=== PATIENT | female | born 1980 | race Caucasian/White ===

== ENCOUNTER 2020-04-09 18:19 | Emergency (ER) | payer SELFPAY ==
[2020-04-09 18:20] VITALS: BP 143/84; PULSE 75; RESP 16; TEMP 36.2; O2SAT 100
--- NOTE | 2020-04-09 18:21 | W.ED.GENAD ---
Discharge Plan Disposition Patient Disposition: HOME Condition: Good Discharge Details Chief Complaint: Orthopedic Clinical Impression: Acromioclavicular joint separation Primary Care Provider: None,None ED Provider: Michelle Chanel Home Meds and New Rx's Prescriptions: Continued Control Pill 1 tab PO DAILY RF: 0 Discharge Instructions Instructions: Acromioclavicular Separation (ED) Additional Instructions: Encourage rest, ice, elevation. Tylenol and/or ibuprofen as needed for discomfort. Please continue with sling until evaluated by orthopedics. Please call orthopedics tomorrow to schedule follow-up appointment. You may perform light duty activities with your right hand but please avoid excessive strain on the left. If you develop fever/chills, increased pain or other new/worsening symptom please seek care urgently once again. Stand Alone Forms: Work Release Referrals: Migue Aly MD [ [facility] STAFF PHYSICIAN] - Discharge Data Discharge Date/Time-TO BE ENTERED AT DEPARTURE: 04/09/20 20:05 Medical Decision Making Patient is a pleasant 39-year-old tavaz-syil-zvdwxurh female. Patient was Kiswahili, x ray tech was utilized. She is here today with chief complaint of left shoulder injury. Reports that 3 weeks ago a Rey pinned her between its own body weight on the wall. She reports that her arm was forced behind her in the arm against the wall was the left. Since that time, she has had pain primarily along the anterior aspect of the shoulder but this does radiate slightly into the arm as well as into the scapula. She is also indicates the pain along the trapezius. States she has some tingling in her fingers. States that while she has been able to continue to perform her job, she has had difficulty particularly holding heavy things in the left arm secondary to discomfort over the anterior aspect of the shoulder. She denies other injury at the time of the incident. On exam, patient appears to be no acute distress. She is full range of motion of her left upper extremity. Pain primarily over the AC joint and bicep tendon. She still has pain with internal rotation against resistance. Exam is otherwise within normal limits. No neurologic dysfunction is noted on the patient does indicate the ring and middle finger as area of intermittent tingling. This was not evident on exam, sensation was intact. Patient was given Tylenol, ibuprofen and Lidoderm patch to help with discomfort. X-ray reviewed by radiologist FINDINGS: Bones/joints: The distal clavicle has an irregular appearance and is slightly superiorly sloped. This suggests an acromioclavicular injury with a possible subacute fracture within the very distal clavicle. The remaining bones are normal appearance. Soft tissues: Mild soft tissue swelling is seen along the superior margin of the acromioclavicular joint. IMPRESSION: Findings suggestive of an acromioclavicular injury, with a possible fracture within the distal left clavicle. This can be further evaluated with an MRI or CT study. Findings with the patient. I reviewed the images and felt that most consistent with an AC joint separation. This is also most consistent with the patient's history and exam. Will place patient in a sling and have her follow-up with orthopedics. Encourage rest, ice, elevation. Tylenol and/or ibuprofen as needed for discomfort. We also discussed topical options that may be of benefit to help with her pain. Return precautions were discussed. Work note was given. All of her questions and concerns were addressed and she is in agreement this plan. HPI General Mode of arrival: ambulatory. Date/Time Provider Initiated Documentation: 04/09/20 18:21. Limitations to Documentation: language barrier (Bottom Liquor Attendant used). Information obtained by: patient and RN notes reviewed. History of Present Illness 39 year old F presents to the emergency department with the chief complaint of Left shoulder pain, described as severe, with intensity rated at 8. Quality is described as aching, and is localized to the left. Patient extremity. Patient started experiencing this week(s) (3) and it has been constant. Immobilization improves symptom(s), Movement worsens symptoms . Patient notes no other symptoms.. Patient did receive the following treatments prior to arrival, none Related Data Home Medications Medication Instructions Recorded Confirmed Control Pill 1 tab PO DAILY 04/09/20 Allergies Allergy/AdvReac Type Severity Reaction Status Date / Time No Known Allergies Allergy Unverified 04/09/20 18:24 Review of Systems Constitutional Constitutional: Reports as per HPI, Denies chills, Denies fever(s), Denies headache(s) and Denies weakness ENT Ears, Nose, Mouth, and Throat: Denies headache(s) Cardiovascular Cardiovascular: Reports as per HPI Respiratory Respiratory: Reports as per HPI and Denies cough Musculoskeletal Musculoskeletal: Reports as per HPI and Denies tingling Integumentary/Breasts Skin/Breast: Reports as per HPI, Denies rash and Denies wounds Neurologic Neurologic: Reports as per HPI, Denies headache(s), Denies tingling, Denies paresthesias and Denies weakness [facility] Social History Smoking/Tobacco Use Status: Never Alcohol Intake: never Substance use type: does not use Do you feel safe at home: Yes Do you feel safe in your relationship?: Yes Exam Const General: cooperative, healthy appearing, comfortable, no acute distress, well developed and well groomed Nutritional Appearance: average body habitus and well nourished Orientation: alert and awake Resp Effort & Inspection: normal respiratory effort, able to speak in complete sentences and no respiratory distress Cardio Rate: regular rate Rhythm: regular rhythm Skin General skin exam: no rashes or lesions noted Lesions: no lesions Rashes: no rashes Trauma: no lacerations or abrasions Neuro General: patient alert and patient awake Cognition: normal cognition Speech: speech normal Gait: normal gait Motor: muscle tone normal throughout Sensory Exam: no sensory deficits noted Extrem Left upper extremity: normal to inspection, full ROM, normal capillary refill, no joint enlargement, shoulder/upper arm Details: inspection abnormal, tenderness Location: of the A-C joint and over the biceps tendon, axillary nerve sensory function normal, normal ROM and other (pain with IR against resistance); no swelling, no abrasions, no lacerations, no ecchymosis, no crepitus and no deformity, elbow/forearm Details: normal to inspection, normal ROM and distal pulses intact; no tenderness, no swelling, no ecchymosis, no crepitus and no deformity, wrist Details: normal to inspection, normal ROM, normal vascular exam and radial pulse present; no tenderness and no swelling and hand Details: normal to inspection, normal capillary refill, neuromotor exam normal, neurosensory exam normal, tendon exam normal and normal ROM of fingers Psych Appearance: grossly normal and well kempt Mental Status: mental status grossly normal Speech and Movement: speech and movement normal
[2020-04-09] MEDS: Acetaminophen 500 MG TAB 1000 MG PO (18:56)
[2020-04-09] MEDS: Ibuprofen 600 MG TAB PO (18:56)
--- NOTE | 2020-04-09 19:15 | DI.RAD_ITS ---
EXAM: XR SHOULDER LT COMPLETE 2+V INDICATION: injury 3 weeks ago. COMPARISON: No exams were available for comparison TECHNIQUE: 2D digital imaging was performed. FINDINGS: There is a minimally displaced fracture at the tip of end of the distal clavicle. No other fractures are seen the AC joint is not widened the glenohumeral joint is intact. The visualized portions of t he ribs are intact. No pneumothorax is seen. IMPRESSION: Nondisplaced fracture at the distal end of the clavicle. DATA REPOSITORY: RADIATION DOSE DELIVERED:
--- NOTE | 2020-04-09 19:23 | DI.VRAD_ITS ---
PROCEDURE INFORMATION: Exam: XR Left Shoulder Exam date and time: 04/09/2020 7:10 PM Age: 39 years old Clinical indication: Pain; Shoulder; Left; Additional info: A cow fell into the patient 3-4 weeks ago, pain since, not improving TECHNIQUE: Imaging protocol: XR Left shoulder. Views: 2 or more views. COMPARISON: No relevant prior studies available. FINDINGS: Bones/joints: The distal clavicle has an irregular appearance and is slightly superiorly sloped. This suggests an acromioclavicular injury with a possible subacute fracture within the very distal clavicle. The remaining bones are normal appearance. Soft tissues: Mild soft tissue swelling is seen along the superior margin of the acromioclavicular joint. IMPRESSION: Findings suggestive of an acromioclavicular injury, with a possible fracture within the distal left clavicle. This can be further evaluated with an MRI or CT study. Dictated and Authenticated by: Silvina Oliveira MD. Ordering:STEPHAN Martinez MD
[2020-04-09 19:55] VITALS: BP 135/78; PULSE 67; RESP 16; O2SAT 100
--- NOTE | 2020-04-09 19:56 | NUR.NOTE ---
sling applied to L upper extremity. forging engineer Pedro research laboratory technician until 1900 and MARY Gutierrez until discharge, instructions provided and questions answered
[2020-04-09 20:10] VITALS: BP 135/78; PULSE 67; RESP 16; O2SAT 100
== END 2020-04-09 20:05 | disposition home or self-care (01) ==
PROVIDERS: Emergency Provider Physician Assistant
DX: S43.102A Unspecified dislocation of left acromioclavicular joint, initial encounter (principal); W55.29XA Other contact with cow, initial encounter; Y99.0 Civilian activity done for income or pay
CPT/HCPCS: 99284; 73030; 99283; L3650

== ENCOUNTER 2020-04-23 10:54 | Outpatient (CLI) | payer SELFPAY ==
--- NOTE | 2020-04-23 10:15 | DI.RAD_ITS ---
EXAM: XR CLAVICLE LT CLINICAL HISTORY: fu left shoulder TECHNIQUE: 2D digital imaging was performed. COMPARISON: CR,XR XR SHOULDER LT COMPLETE 2+V from 04/09/2020 FINDINGS: There has been no change in appearance or alignment of the left acromioclavicular joint. No new frac ture or dislocation is appreciated. Soft tissues are unremarkable. IMPRESSION: DATA REPOSITORY: RADIATION DOSE DELIVERED:
== END 2020-04-23 11:14 ==
PROVIDERS: Referring Provider Student in an Organized Health Care Education/Training Program; Visit Provider Student in an Organized Health Care Education/Training Program
DX: S42.002A Fracture of unspecified part of left clavicle, initial encounter for closed fracture (principal)
CPT/HCPCS: 73000

== ENCOUNTER 2021-02-23 19:15 | Outpatient (REF) | payer SELFPAY ==
[2021-02-26 15:58] LABS: Helicobacter pylori Ag, Feces Negative (Negative)
== END 2021-02-23 19:16 | disposition home or self-care (01) ==
LOC: NCHCN 19:15
PROVIDERS: Visit Provider Nurse Practitioner Family
DX: R10.13 Epigastric pain (principal)
CPT/HCPCS: 87338

== ENCOUNTER 2021-10-06 17:32 | Outpatient (REF) | payer SELFPAY ==
[2021-10-08 11:29] LABS: COVID-19 RT-PCR UVMMC Result Negative (Negative)
== END 2021-10-06 17:33 | disposition home or self-care (01) ==
LOC: LBN 17:32
PROVIDERS: Visit Provider Physician Assistant
DX: Z20.822 Contact with and (suspected) exposure to COVID-19 (principal)
CPT/HCPCS: U0003; 81003

== ENCOUNTER 2021-10-15 21:46 | Outpatient (REF) | payer SELFPAY ==
[2021-10-15 22:16] LABS: HCT 39.5 % (36.0-46.0); HGB 13.1 g/dL (11.2-15.7); MCH 30.3 pg (27.0-33.0); MCHC 33.2 % (32.0-36.0); MCV 91.4 fL (80-95); MPV 9.6 fL (8.0-11.0); Nucleated RBC 0 %; Platelet Count 355 10^3/uL (130-400); RBC 4.32 10^6/uL (3.93-5.22); RDW 13.2 % (11.7-14.6); RDW-SD 44.7 fL; WBC 11.16 10^3/uL (4.4-10.8)
[2021-10-15 22:26] LABS: ALT 44 U/L (14-59); AST 28 U/L (15-37); Alkaline Phosphatase 88 U/L (46-116); Anion Gap 9.1 mmol/L (3-11); BUN 13 mg/dL (7-18); Bilirubin, Total 0.2 mg/dL (0.2-1.0); CO2 24.9 mmol/L (21.0-32.0); CREATININE 0.7 mg/dL (0.55-1.02); Chloride 105 mmol/L (98-107); Glucose 144 mg/dL (74-106); Lipase 137 U/L (73-393); Sodium 139 mmol/L (136-145); Total Protein 7.7 g/dL (6.4-8.2)
[2021-10-15 22:31] LABS: Absolute Eosinophil Count 0.11 10^3/uL (0.0-0.7); Absolute Lymphocyte Count 5.25 10^3/uL (1.2-3.4); Absolute Monocyte Count 0.22 10^3/uL (0.1-0.8); Absolute Neutrophil Count 5.58 10^3/uL (1.2-6.7); Diff Comment Manual Differential; RBC Morphology Normal
== END 2021-10-15 21:47 | disposition home or self-care (01) ==
LOC: LBN 21:46
PROVIDERS: Visit Provider Nurse Practitioner Family
DX: R10.9 Unspecified abdominal pain (principal)
CPT/HCPCS: 80053; 83690; 85025

== ENCOUNTER 2022-01-22 01:09 | Outpatient (CLI) | payer SELFPAY ==
[2022-01-22 15:03] LABS: Source Nasal/Nares
[2022-01-22 17:50] LABS: COVID-19 PCR Negative (Negative)
== END 2022-01-22 01:10 | disposition home or self-care (01) ==
PROVIDERS: PCP Nurse Practitioner Family; Visit Provider Surgery
DX: Z20.822 Contact with and (suspected) exposure to COVID-19 (principal); Z01.818 Encounter for other preprocedural examination
CPT/HCPCS: 87635

== ENCOUNTER 2022-01-25 06:13 | Day surgery (SDC) | payer SELFPAY ==
[2022-01-25 06:23] VITALS: BP 123/72; PULSE 63; RESP 16; TEMP 36.7; O2SAT 97
--- NOTE | 2022-01-25 06:40 | HPE_ITS ---
Assessment and Plan Assessment and plan (1) Abdominal pain: Status: Acute Assessment and plan: Ya is a pleasant 41-year-old female with ongoing epigastric and left flank pain for more than 8 years.? She has never had an upper endoscopy or colonoscopy .? I recommend starting with that.? I reviewed the procedure with her in detail as well as the prep.? I have translated prep instructions in [place] African and will send those to her.? 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 Risks, benefits and complications have been reviewed. Complications include but are not limited to bleeding, pain, perforation, missed small lesion/polyp, sore throat, aspiration and adverse reaction to the medications. Questions were entertained and answered to their satisfaction and they wished to proceed. No guarantees were given or implied. Proceed with colonoscopy and upper endoscopy under sedation ? ? History of Present Illness Narrative: Mrs John Naranjo is a pleasant 41-year-old female who speaks Central African.? I was able to do the translation myself as I am a [place] speaker.? Ya tells me that she has had epigastric abdominal pain and periumbilical pain for more than 8 years.? The periumbilical pain started prior to the epigastric pain.? She was seen at a doctor's office and [facility] and she was told that she had an umbilical hernia and that is what the pain was coming from.? She underwent a hernia repair but the pain never resolved.? She also has a history of gastritis and takes omeprazole.? She has recently had increase in epigastric pain.? She has had no melena or hematochezia.? She has not had any changes in bowel habits.? She denies any nausea or vomiting. She hashad no changes in her health since she was last seen in the office. She tells me that she is nervous. Patient was reassured. Review of Systems All systems reviewed & are unremarkable except as noted in HPI and below PFSH All Active Problems Abdominal pain (Acute) Epigastric pain (Acute) Medical History Cervical spine pain (~03/2020) Cervical spine sprain Chest pain Closed left clavicular fracture (~03/2020) Surgical History History of esophagogastroduodenoscopy (EGD) History of ventral hernia repair Previous section x2 Social History Smoking/Tobacco Use Status: Never Smoking risk assessment performed?: Yes Alcohol Intake: never Substance use type: does not use Household members: spouse and children Housing: house Number of Children: 3 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 Current gender identity: female Do you feel safe at home: Yes Do you feel safe in your relationship?: Yes Additional Social history: unable to assess privatley Meds Allergies and Home Medications Allergies Allergy/AdvReac Type Severity Reaction Status Date / Time No Known Allergies Allergy Verified 01/22/22 15:12 Home Medications Medication Instructions Recorded Confirmed Type bisacodyl 5 mg tablet,delayed 5 mg PO ONCE #4 tabs 01/21/22 01/22/22 Rx release (Dulcolax (bisacodyl)) polyethylene glycol 3350 17 17 g PO ONCE #238 grams 01/21/22 01/22/22 Rx gram/dose oral powder Exam Const General: cooperative, comfortable and no acute distress HENMT Head: normocephalic and atraumatic Resp Effort & Inspection: normal respiratory effort Auscultation: clear to auscultation bilaterally Cardio Rate: regular rate Rhythm: regular rhythm Results Last Vital Signs Temp 98.1 F 01/25/22 06:23 Pulse 63 01/25/22 06:23 Resp 16 01/25/22 06:23 BP 123/72 01/25/22 06:23 Pulse Ox 97 01/25/22 06:23
--- NOTE | 2022-01-25 06:45 | ENDO_ITS ---
Date of service: 01/25/22 Time of Service: : Endoscopy Report DATE OF PROCEDURE: 01/25/22 PRE-OP DIAGNOSIS: Abdominal pain POST-OP DIAGNOSIS: other (gastritis, polyps) PROCEDURE: 1. EGD with biopsies 2. Colonoscopy with polypectomy SURGEON: Faby Willis ANESTHESIA TYPE: General:No Airway ESTIMATED BLOOD LOSS: 3 PATHOLOGY: other (gastric bx, GE junction bx, gastric polyp, ascending polyp and transverse polyp) COMPLICATIONS: None DISPOSITION: same day INDICATIONS: Ya is a pleasant 41-year-old female with ongoing epigastric and left flank pain for more than 8 years.? She has never had an upper endoscopy or col onoscopy.? I recommend starting with that.? I reviewed the procedure with her in detail as well as the prep.? I have translated prep instructions in Malay and will send those to her.? 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 PREP: Miralax/Dulcolax PROCEDURE START TIME: : PROCEDURE END TIME: 08:01 COLONOSCOPY RETRACTION TIME: 15 minutes FINDINGS: Upper- Acute and chronic gastritis, gastric polyps Lower- 2 small polyps PROCEDURE DESCRIPTION: After informed consent was obtained the patient was take to the procedure r oom and placed in a supine position. Monitors were applied and a time out was done. The patients name, date of , procedure type, allergies to medications and metal in their body was reviewed. A bite block was placed and the patient was sedated. Once sedated and comfortable the gastroscope was advanced through the oropharynx which was grossly normal into the esophagus. The proximal and mid- esophagus were normal. In the distal esophagus there was no inflammation noted. The scope was advanced into the stomach and through the pylorus into the 3rd portion of the duodenum. The duodenum was noted to be normal. The scope was retracted back into the stomach. There was acute and chronic inflammation noted in the antrum and body. There were benign fundic polyps noted. Biopsies were done to rule out H. pylori. There were no ulcers. The scope was retro-flexed. The cardia and fundus were noted to be normal. There was no hiatal hernia noted. The scope was retracted back into the esophagus and biopsies were done of the GE junction to rule out Jane's. The Z line was regular. The GE junction was at 35 cm. While the patient was still sedated they were placed in a left decubitous position. A rectal exam was done. External exam was normal. Internal exam revealed a normal sphincter tone and no palpable masses. The scope was then introduced and retro-flexed. No internal hemorrhoids, masses or polyps were identified on retroflexion. The scope was then advanced to the cecum without difficulty. The ileocecal valve and appendiceal orifice were identified. The prep was adequate. The scope was then slowly retracted over 15 minutes back into the rectum. Polyps were removed with cold forceps in the ascending and transverse colon. There was no diverticulosis noted. The scope was removed and the patient was woken up and taken back to Same day surgery in stable condition. The patient tolerated the procedure well and there were no immediate complications.
--- NOTE | 2022-01-25 06:46 | PDOC.DSDIS_ITS ---
Discharge Plan Disposition Patient Disposition: HOME Condition: Good Discharge Details Reason For Visit: abdominal pain Attending Provider: Faby Willis Primary Care Provider: Veronica Pro Home Meds and New Rx's Prescriptions: New omeprazole 40 mg capsule,delayed release(DR/EC) 40 mg PO DAILY Qty: 30 3RF Discontinued bisacodyl [Dulcolax (bisacodyl)] 5 mg tablet,delayed release (DR/EC) 5 mg PO ONCE Qty: 4 0RF Rx Instructions: Take according to provider's instructions for colonoscopy prep. polyethylene glycol 3350 17 gram/dose powder 17 g PO ONCE Qty: 238 0RF Rx Instructions: To be taken as directed by prescriber's office for colonoscopy prep. Discharge Instructions Instructions: Diet for Stomach Ulcers and Gastritis (GEN) Additional Instructions: Findings: inflamacion en el estomago Follow up: 2 o 3 semanas Nueva medicacion: Omeprazole 40 mg eder vez al valarie Please call if you develop: fevers >101.5 Nausea or Vomiting Abdominal pain that is not transient Rectal bleeding that is more then a tbsp A hard abdomen and inability to pass gas DAY SURGERY UNIT POST ENDOSCOPY INSTRUCTIONS Instructions for everyone who is given Anesthesia: For your safety, please do the following for the next 24 Hours: a. Do not drive or operate dangerous equipment b. Do not drink alcohol beverages or use any recreational drugs for the first 24 hours or while taking pain medications. The medications in your body may have a reaction that can be dangerous. c. Do not make any important decisions or sign any important papers 1. Generally there are no restrictions on your activity after a day or so has gone by, but you may feel a bit fatigued for a few days. 2. After you arrive home you may have a light meal and return to a normal diet as you can tolerate it without feeling sick to your stomach. 3. After surgery, you may feel pain or discomfort. This should be only transient, but if it persists please contact your doctor. 4. If there are any questions regarding the findings of your procedure, please feel free to contact your doctor. 6. If you are unable to contact your doctor with a problem, contact the hospital at [phone]. 7. Continue all your regular medications unless directed otherwise. I understand the above instructions and have no questions. Signature of Patient or Responsible Adult Escort Date/Time Name of Responsible Adult Escort Signature of Nurse Date/Time Referrals: Faby Willis MD [ [facility] STAFF PHYSICIAN] - 02/09/22 11:30 am Activity:: Activity as Tolerated Diet:: As Tolerated Discharge Orders Discharge Orders: Discharge Order (Routine); Ordered 01/25/22 Ordered By: Faby Willis DS: Diagnosis Discharge Diagnosis (1) Abdominal pain: Status: Acute
--- NOTE | 2022-01-25 06:59 | ANES.PREOP_ITS ---
General Info Date of Service Date Performed: 01/25/22 Height: 5 ft 5 in Weight: 80.91 kg Body Mass Index (BMI): 29.7 Surgical Procedure: Operation Date: 01/25/22 07:35 Proposed Procedure Side Surgeon p Colonoscopy/Gastroscopy Faby Willis MD Meds Allergies and Home Medications Allergies Allergy/AdvReac Type Severity Reaction Status Date / Time No Known Allergies Allergy Verified 01/22/22 15:12 Home Medication Medication Instructions Recorded bisacodyl 5 mg tablet,delayed 5 mg PO ONCE #4 tabs 01/21/22 release (Dulcolax (bisacodyl)) polyethylene glycol 3350 17 17 g PO ONCE #238 grams 01/21/22 gram/dose oral powder Current Visit Medications: Current Medications Generic Name Dose Route Start Last Admin Trade Name Freq PRN Reason Stop Dose Admin Hyoscyamine Sulfate 0.125 mg 01/25/22 06:47 Hyoscyamine 0.125 Mg Sl/Oral/Chew SL DIRECTED PRN Ringer's Solution 1,000 mls @ 80 mls/hr 01/25/22 06:00 IV 02/21/22 23:59 INFUSION [facility] IV Miscellaneous Supplies 1 each 01/25/22 06:00 Iv Access IV 02/21/22 23:59 DIRECTED [facility] Ondansetron HCl 4 mg 01/25/22 06:47 Ondansetron 4 Mg/2 Ml Vial IVP Q4H PRN PRN Nausea / Vomiting Sodium Chloride 0 ml 01/25/22 06:00 Normal Saline Flush 10 Ml Syr IV 02/21/22 23:59 PRN PRN Sodium Chloride 0 ml 01/25/22 06:00 Normal Saline 10 Ml Vial IJ 02/21/22 23:59 DIRECTED PRN Sterile Water 0 ml 01/25/22 06:00 Water,Injection,Sterile 10 Ml Vial IJ 02/21/22 23:59 DIRECTED PRN PFSH Active Problems Active Problems: Problem Status Onset Code Abdominal pain R10.9 Epigastric pain R10.13 Medical History Medical History Cervical spine pain (~03/2020) Cervical spine sprain Chest pain Closed left clavicular fracture (~03/2020) Surgical History Surgical History History of esophagogastroduodenoscopy (EGD) History of ventral hernia repair Previous section x2 Tobacco Smoking/Tobacco Use Status: Never Alcohol Alcohol Intake: never Substance Use Substance use type: does not use Vital Signs and Lab Results Vital Signs Most Recent Vital Signs in EMR: Most Recent Vital Signs Temp Pulse Resp BP Pulse Ox 36.7 C 63 16 123/72 97 01/25/22 06:23 01/25/22 06:23 01/25/22 06:23 01/25/22 06:23 01/25/22 06:23 Lab Results Blood Type / Crossmatch: No Data to Display Complete Blood Count: No Data to Display Complete Metabolic Panel: No Data to Display Liver Function Panel: No Data to Display Coagulation Panel: No Data to Display Cardiac Panel: No Data to Display Arterial Blood Gas: No Data to Display Venous Blood Gas: No Data to Display Pancreas Panel: No Data to Display Thyroid Panel: No Data to Display Infectious Disease: Coronavirus (COVID-19)(PCR) Negative (Negative) 01/22/22 14:58 Coronavirus 2019 Source Nasal/Nares 01/22/22 14:58 Blood Cultures: No Data to Display Toxicology Panel: No Data to Display Panel: No Data to Display Anesthesia Assessment and Plan Anesthesia History Personal History: No History of Anesthesia Complications Family History: No Family History of Anesthesia Complications Exercise Tolerance Exercise Tolerance: Metabolic Equivalents>4 Pertinent Negatives Pertinent Negatives: No Symptoms of GERD Cardiac & Pulmonary Exam Cardiac Exam: Normal S1/S2 Heart Sounds Pulmonary Exam: Clear Bilateral Breath Sounds Implantable Cardiac Device Does patient have a Pacemaker or an ICD?: No Airway Exam Known Difficult Airway: No Mallampati Class: 2 Mouth Opening: Normal (> 3cm) Thyromental Distance: Greater than 3 cm Neck Range of Motion: Full ROM Neck Circumference: Normal Teeth Condition: Normal Dentition and Removable Dentures/Plates Upper ASA Classification ASA Score: ASA 2 Emergency Case?: No NPO Status NPO Status: NPO Clears >2 hours, Solids >8 hours Status Status: Negative HCG Anesthesia Plan Resuscitation Status: Full Code Anesthesia Technique: General Anesthesia Airway Planned: Natural Airway Monitors Used: Standard Monitors
[2022-01-25] MEDS: Lactated Ringers 1,000 ML 80 ML IV (07:09)
--- NOTE | 2022-01-25 07:30 | STOM_PTH ---
PATIENT: Jessica Kimbrough LOC: [facility] U#:[id number] AGE/SX: 41/F ROOM: RE01/25/[address]: Faby Willis MD : 1980 BED: DIS: 01/25/2022 SPEC #: [id number] RECD: 01/25/22 12:54 STATUS: KAEL REQ #: [id number] IRENE: 01/25/22 07:[address]: Faby Willis DEPT: Surgical Specimen RECD BY: Nan Lemos ENTERED: 01/25/22 12:56 SP TYPE: STOMACH OTHR DR: Jarad Pro Tissues: 1 - STOMACH BIOPSY 2 - STOMACH BIOPSY 3 - ESOPHAGUS BIOPSY 4 - BIOPSY BOWEL 5 - BIOPSY BOWEL Procedures: GROSS AND MICRO LEVEL 4 Comments: [id number]
[2022-01-25 07:39] VITALS: BMI 29.7
[2022-01-25 08:09] VITALS: BP 118/73; PULSE 60; RESP 14; TEMP 36.3; O2SAT 98
[2022-01-25 08:36] VITALS: BP 127/79; PULSE 52; RESP 16; TEMP 36.4; O2SAT 98
--- NOTE | 2022-01-25 09:30 | W.ANESPOSTOP ---
Postoperative Evaluation Date, Time and Location Date Performed: 01/25/22 Time Performed: 09:18 Patient Location: Day Surgery Unit Vital Signs Most Recent Imported Vital Signs: Most Recent Vital Signs Temp Pulse Resp BP Pulse Ox 36.3 C L 60 14 118/73 98 01/25/22 08:09 01/25/22 08:09 01/25/22 08:09 01/25/22 08:09 01/25/22 08:09 Pain Score Most Recent Pain Score: Most Recent Pain Score Pain Level 0 01/25/22 08:09 Assessment Mental Status: Awake (Alert & Oriented to Patient Baseline) Airway and Respiratory Function: Patent airway with normal (patient baseline) respiratory exam Cardiovascular Function: Hemodynamically Stable Hydration Status: Adequately Hydrated Nausea & Vomiting: No Nausea or Vomiting Pain: Pt. Denies Any Pain Peripheral Nerve Block: Patient did not receive a nerve block
== END 2022-01-25 06:14 | disposition home or self-care (01) ==
PROVIDERS: PCP Nurse Practitioner Family; Visit Provider Surgery
PROC: (CPT 45380; principal; 2022-01-25 07:30)
DX: R10.13 Epigastric pain (principal); K31.7 Polyp of stomach and duodenum; K63.5 Polyp of colon; K29.70 Gastritis, unspecified, without bleeding; R10.32 Left lower quadrant pain; K63.89 Other specified diseases of intestine; K31.89 Other diseases of stomach and duodenum; K22.89 Other specified disease of esophagus
CPT/HCPCS: 45380; 43239; 88305

== ENCOUNTER 2022-02-08 17:34 | Outpatient (REF) | payer SELFPAY ==
[2022-02-08 19:34] LABS: TSH (W/Ref FT4) 2.08 uIU/mL (0.36-3.74)
== END 2022-02-08 17:35 | disposition home or self-care (01) ==
LOC: NCHCN 17:34
PROVIDERS: PCP Nurse Practitioner Family; Visit Provider Nurse Practitioner Family
DX: L65.9 Nonscarring hair loss, unspecified (principal); N95.1 Menopausal and female climacteric states
CPT/HCPCS: 84443

== ENCOUNTER 2022-02-22 17:36 | Outpatient (REF) | payer SELFPAY ==
--- NOTE | 2022-02-22 16:50 | PAPFT_PTH ---
PATIENT: Jessica Kimbrough LOC: [facility]#:[id number] AGE/SX: 41/F ROOM: RE02/22/[address]: Jarad Pro : 1980 BED: DIS: 02/22/2022 SPEC #: [id number] RECD: 02/23/22 12:49 STATUS: KAEL REQ #: [id number] IRENE: 02/22/22 16:[address]: Veronica Pro DEPT: [facility] Cytology RECD BY: Nan Lemos Tissues: 1 - CX/ENDOCX FOR PAP SMEARS Procedures: PAP THIN PREP/UVM Screening HPV DNA PROBE Comments: [id number]
== END 2022-02-22 17:37 | disposition home or self-care (01) ==
LOC: NCHCN 17:36
PROVIDERS: PCP Nurse Practitioner Family; Visit Provider Nurse Practitioner Family
DX: Z12.4 Encounter for screening for malignant neoplasm of cervix (principal)
CPT/HCPCS: 88142; 87624

== ENCOUNTER 2022-10-30 16:20 | Emergency (ER) | payer SELFPAY ==
[2022-10-30 16:25] VITALS: BP 136/69; PULSE 70; RESP 16; TEMP 36.9; O2SAT 98
--- NOTE | 2022-10-30 16:30 | DI.CT_ITS ---
Exam(s) CT HEAD WO EXAM: CT HEAD WO CLINICAL HISTORY: Headache. TECHNIQUE: Imaging Protocol: Axial computed tomography images with coronal and sagittal reformatted images were created and reviewed COMPARISON: No exams were available for comparison FINDINGS: There are no skull fractures. There is a post inflammatory retention cyst in the left maxillary sinus which measures 1.5 by 1.3 cm. There is no associated fluid level. Right maxillary sinus is clear a s are the remainder of the maxillary sinuses and mastoid air cells. There is no evidence of intracranial hemorrhage, mass effect, or shift of midline structures. There are no extra-axial fluid collections. The ventricles are not enlarged or shifted and there is no blo od within the ventricular system nor within the basal cisterns. IMPRESSION: No acute intracranial findings on this noninfused CT scan of the brain. 15 x 13 millimeter post inflammatory retention cyst is noted in the left maxillary sinus. RADIATION DOSE DELIVERED: 742.29mGy.cm Total DLP DATA REPOSITORY: All CT scans at this facility are submitted to the National Radiology Data Registry (NRDR) Dose Index Registry (DIR) with the [employer] (A[employer]). RADIATION OPTIMIZATION: All CT scans at this facility use at least one of these dose optimization te chniques: automated exposure control; mA and/or kV adjustment per patient size (includes targeted exa ms where dose is matched to clinical indication); or iterative reconstruction.
--- NOTE | 2022-10-30 16:38 | ED.GENADUL_ITS ---
Discharge Plan Disposition Patient Disposition: Home Discharge Details Clinical Impression: Migraine Primary Care Provider: Veronica Pro ED Provider: Jono Aldana Home Meds and New Rx's Prescriptions: No Action Depo-Medrol 20 mg/mL suspension 20 mg IM ONCE Rx Instructions: as a single dose omeprazole 40 mg capsule,delayed release(DR/EC) 40 mg PO DAILY Qty: 90 0RF omeprazole 40 mg capsule,delayed release(DR/EC) 40 mg PO DAILY Qty: 30 3RF Discharge Instructions Additional Instructions: It is very important that you hydrate well. I encourage you to get some Excedrin Migraine and take as directed. It is also important that you get an eye examination to determine if he needs glasses. Bad eyesight can be the source of headaches. Please follow-up with primary care doctor as needed Medical Decision Making 41-year-old woman presents to the emergency room with history of headaches. On history taking it appears that the headaches have reported her life for many many years. For the past week she has had increase the number of headaches. CT scan of the head was obtained to rule out any lesions. This was negative. She was treated with Reglan which resolved her headache. She informed me that she has prescription eyeglasses that she has not worn for quite some time now. I have asked her to have her vision verified to make sure that she does not need glasses since this could be the source of headache. Normal neurologic exam. She will be discharged instructions to get some Excedrin Migraine and use as directed. HPI General Date/Time Provider Initiated Documentation: 10/30/22 16:38 . HPI Narrative: 42-year-old lady brought to the emergency room for evaluation for recurrent headaches for the past week. Tells me that she has had headaches all her life but for the past week they have been getting more frequent. 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 She notices a change in the frequency of her headaches. When the headaches affect her she states that at times her vision is blurry, at times she has some nausea. Has never vomited. Is not associated with any fevers or chills. She believes that the source of her headaches for all her life resolved from a head injury when she was a child. When the pain in her head gets too much she also feels some tingling of both her hands. She does not take any medication for diabetes or hypertension. Has never been diagnosed hypertension. No associated neck pain. No focal weakness. Related Data Home Medications Medication Instructions Recorded Confirmed omeprazole 40 mg capsule,delayed 40 mg PO DAILY #30 caps 01/25/22 04/26/22 release omeprazole 40 mg capsule,delayed 40 mg PO DAILY #90 caps 03/22/22 10/30/22 release methylprednisolone acetate 20 20 mg IM ONCE 04/26/22 10/30/22 mg/mL suspension for injection (Depo-Medrol) Previous Rx's Medication Instructions Recorded omeprazole 40 mg capsule,delayed 40 mg PO DAILY #30 caps 01/25/22 release omeprazole 40 mg capsule,delayed 40 mg PO DAILY #90 caps 03/22/22 release Allergies Allergy/AdvReac Type Severity Reaction Status Date / Time No Known Allergies Allergy Verified 10/30/22 16:40 General Stated Complaint: Headache VIELKA: 3 Review of Systems Narrative: 10 point review of system is negative unless otherwise specified in the HPI. PFSH All Active Problems (Updated 10/30/22 @ 17:51 by Jono Aldana MD) Migraine (Chronic) Abdominal pain (Acute) Epigastric pain (Acute) Medical History Cervical spine pain (~03/2020) Cervical spine sprain Chest pain Closed left clavicular fracture (~03/2020) Surgical History History of colonoscopy (~12/2021) History of esophagogastroduodenoscopy (EGD) (~12/2021) History of ventral hernia repair Previous section x2 Social History Smoking/Tobacco Use Status: Never Smoking risk assessment performed?: Yes Alcohol Intake: never Substance use type: does not use Household members: spouse and children Housing: house Number of Children: 3 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 Course Vital Signs Vital signs: Vital Signs Temperature 36.9 C 10/30/22 16:25 Pulse 70 10/30/22 16:25 Respiratory Rate 16 10/30/22 16:25 Blood Pressure 136/69 10/30/22 16:25 Pulse Oximetry 98 10/30/22 16:25 Temperature 36.9 C 10/30/22 16:25 Temperature Source Tympanic 10/30/22 16:25 Pulse 70 10/30/22 16:25 Respiratory Rate 16 10/30/22 16:25 Blood Pressure 136/69 10/30/22 16:25 Blood Pressure Position Sitting 10/30/22 16:25 Pulse Oximetry 98 10/30/22 16:25 Oxygen Delivery Method Room Air 10/30/22 16:25 Oxygen Flow Rate 0 10/30/22 16:25 Pain Level 8 10/30/22 16:25
[2022-10-30] MEDS: Normal Saline 1,000 ML 1000 ML IV (16:58)
[2022-10-30] MEDS: Metoclopramide 10 MG/2 ML VIAL IVP (17:06)
--- NOTE | 2022-10-30 17:38 | DI.VRAD_ITS ---
PROCEDURE INFORMATION: Exam: CT Head Without Contrast Exam date and time: 10/30/2022 17:19 Age: 42 years old Clinical indication: Pain; Headache TECHNIQUE: Imaging protocol: Computed tomography of the head without contrast. COMPARISON: No relevant prior studies available. FINDINGS: Brain: No edema or hemorrhage. Cerebral ventricles: No ventriculomegaly. Paranasal sinuses: Benign-appearing left maxillary sinus probable retention cyst. Mastoid air cells: No mastoid effusion. Bones/joints: No acute fracture. Soft tissues: No suspicious lesions. IMPRESSION: No acute intracranial findings. Dictated and Authenticated by: Sangeeta Quan MD. Ordering:TINY De La Cruz MD
[2022-10-30 18:00] VITALS: BP 133/80; PULSE 75; TEMP 36.8; O2SAT 98
== END 2022-10-30 18:20 | disposition home or self-care (01) ==
PROVIDERS: Emergency Provider Emergency Medicine; PCP Nurse Practitioner Family
DX: G43.909 Migraine, unspecified, not intractable, without status migrainosus (principal); F41.9 Anxiety disorder, unspecified
CPT/HCPCS: 96361; 96374; 99284; 70450; J2765

== ENCOUNTER 2023-10-13 20:28 | Outpatient (REF) | payer SELFPAY ==
[2023-10-13 19:08] LABS: Abs Immature Grans 0.02 10^3/uL (0.0-0.06); Absolute Basophil Count 0.05 10^3/uL (0.0-0.2); Absolute Eosinophil Count 0.35 10^3/uL (0.0-0.7); Absolute Monocyte Count 0.55 10^3/uL (0.1-0.8); Absolute Neutrophil Count 4.86 10^3/uL (1.2-6.7); Basophils % 0.5; Eosinophils % 3.5; HCT 43.8 % (36.0-46.0); HGB 14.4 g/dL (11.2-15.7); Immature Grans % 0.2; Lymphocytes % 41.9; MCH 30.5 pg (27.0-33.0); MCHC 32.9 % (32.0-36.0); MCV 93 fL (80-95); MPV 10.9 fL (8.0-11.0); Monocytes % 5.5; Neutrophils % 48.4; Platelet Count 265 10^3/uL (130-400); RBC 4.72 10^6/uL (3.93-5.22); RDW 12.7 % (11.7-14.6); RDW-SD 43.8 fL; WBC 10.03 10^3/uL (4.4-10.8)
[2023-10-13 19:10] LABS: ESR 11 mm/hr (0-20)
[2023-10-13 19:32] LABS: ALT 78 U/L (14-59); AST 44 U/L (15-37); Albumin 3.8 g/dL (3.4-5.0); Alkaline Phosphatase 126 U/L (46-116); Anion Gap 10.4 mmol/L (3-11); BUN 15 mg/dL (7-18); Bilirubin, Total 0.3 mg/dL (0.2-1.0); CO2 26.6 mmol/L (21.0-32.0); CREATININE 0.6 mg/dL (0.55-1.02); Calcium 9.5 mg/dL (8.5-10.1); Chloride 104 mmol/L (98-107); Estimated GFR 113.44 (mL/min/1.73m2); Glucose 106 mg/dL (74-106); Sodium 141 mmol/L (136-145); TSH 2.29 uIU/Ml (0.36-3.74); Total Protein 7.8 g/dL (6.4-8.2)
[2023-10-16 23:11] LABS: Anaplasma phagocytophilum Negative (Negative); B. miyamotoi PCR Negative (Negative); Babesia divergens/MO-1 Negative (Negative); Babesia duncani Negative (Negative); Babesia microti Negative (Negative); Ehrlichia chaffeensis Negative (Negative); Ehrlichia ewingii/canis Negative (Negative); Ehrlichia muris eauclairensis Negative (Negative)
[2023-10-17 11:06] LABS: Lyme Ab w Rflx to Lyme Confirm Negative (Negative)
[2023-10-17 16:05] LABS: ANA Interpretation Negative (Negative)
== END 2023-10-13 20:29 | disposition home or self-care (01) ==
LOC: NCHCN 20:28
PROVIDERS: PCP Nurse Practitioner Family; Visit Provider Nurse Practitioner Family
DX: R50.9 Fever, unspecified (principal); M79.18 Myalgia, other site
CPT/HCPCS: 80053; 85652; 87798; 84443; 85025; 86038; 86618

== ENCOUNTER 2023-12-22 12:12 | Outpatient (REF) | payer SELFPAY ==
[2023-12-27 13:45] LABS: Helicobacter pylori Ag, Feces Negative (Negative)
== END 2023-12-22 12:13 | disposition home or self-care (01) ==
LOC: NCHCN 12:12
PROVIDERS: PCP Nurse Practitioner Family; Visit Provider Physician Assistant
DX: R10.13 Epigastric pain (principal)
CPT/HCPCS: 87338; 87177

== ENCOUNTER 2024-03-08 22:07 | Outpatient (REF) | payer SELFPAY ==
[2024-03-08 19:04] LABS: HCT 43.7 % (36.0-46.0); HGB 14.2 g/dL (11.2-15.7); MCH 30.3 pg (27.0-33.0); MCHC 32.5 % (32.0-36.0); MCV 93 fL (80-95); MPV 9.9 fL (8.0-11.0); Platelet Count 290 10^3/uL (130-400); RBC 4.68 10^6/uL (3.93-5.22); RDW 13.2 % (11.7-14.6); RDW-SD 45.2 fL; WBC 10.15 10^3/uL (4.4-10.8)
[2024-03-08 19:24] LABS: ALT 53 U/L (14-59); AST 35 U/L (15-37); Albumin 3.9 g/dL (3.4-5.0); Alkaline Phosphatase 119 U/L (46-116); Anion Gap 7.4 mmol/L (3-11); BUN 19 mg/dL (7-18); Bilirubin, Total 0.25 mg/dL (0.2-1.0); CO2 29.6 mmol/L (21.0-32.0); CREATININE 0.7 mg/dL (0.55-1.02); Calcium 9.1 mg/dL (8.5-10.1); Chloride 104 mmol/L (98-107); Glucose 104 mg/dL (74-106); Potassium 3.7 mmol/L (3.5-5.1); Sodium 141 mmol/L (136-145); TSH (W/Ref FT4) 3.45 uIU/mL (0.36-3.74); Total Protein 7.7 g/dL (6.4-8.2); Troponin I < 50 ng/L (< or =60)
--- OUTSIDE RECORDS SUMMARY | 2024-03-08 22:15 | XMS_ITS | Data Portability ---
Author Organization [place] - [facility], [facility] Address [address] [place] [address] Assessment Encounter Date Assessment Date Assessment LastModified by Organization Details LastModified Time 10/13/2023 10/13/2023 The total time devoted to today's encounter, including both the cmpn-ox-ywpb time with the patient and/or family/caregive r and ygs-ufmr-as-fac e time I personally spent is 45 minutes. Not available 10/13/2023 11:03:23 12/22/2023 12/22/2023 The patient presents with epigastric pain which have worsened over the past few months. Omeprazole was prescribed but has not been effective. Pt only tried omeprazole for 1 week The patient has a history of mild fatty liver disease but no gallstones. The presence of heartburn and burning sensation in the chest is also noted. Not available 12/22/2023 11:47:16 01/19/2024 01/19/2024 The patient is a 43-year-old female presenting for follow-up of epigastric pain. She reports improvement in her stomach symptoms since switching from omeprazole to pantoprazole 40 mg once daily. Not available 01/19/2024 12:37:56 Plan of Treatment Reminders Order Date Submit Date Provider Last Modified By Organization Details Last Modified Time Details Appointments Follow Up 2023 02:10P M MARGOTH MARTINEZ Not available Not available Not available Follow Up 2023 03:10P M MARGOTH MARTINEZ Not available Not available Not available Lab TSH, serum or plasma 2023 024 [facility] (Registration ), [address] [place] [address] [place], [address], 10/13/2023 10:20:57 CMP, serum or plasma 2023 024 [facility] (Registration ), [address] [place] [address] [place], [address], 10/13/2023 10:20:55 CBC w/ diff 2023 024 [facility] (Registration ), [address] [place] [address] [place], [address], 10/13/2023 10:20:57 ESR (erythroc yte sedimenta tion rate), blood 2023 024 [facility] (Registration ), [address] [place] [address] [place], [address], 10/13/2023 10:20:57 tick-born e disease panel 2023 024 mgaboriaul t1 [facility] (Registration ), [address] [place] [address] [place], [address], 10/20/2023 08:55:56 DIEGO (antinucl ear antibodie s) screen, serum 2023 024 mgaboriaul t1 [facility] (Registration ), [address] [place] [address] [place], [address], 10/20/2023 08:56:30 H pylori Ag, stool 2023 024 [facility] (Registration ), [address] [place] [address] [place], [address], 12/27/2023 14:45:19 O&P (ova & parasites ), stool 2023 024 [email or web address] [facility] (Registration ), [address] [place] [address] [place], [address], 12/29/2023 07:30:11 Referral None recorded. Procedures None recorded. Surgeries None recorded. Imaging None recorded. Medication Orders pantopraz ole 40 mg tablet,de layed release 2023 024 [facility], [address], [address], [place], [address], 12/22/2023 11:39:13 pantopraz ole 40 mg tablet,de layed release 2023 024 [facility], [address], [address], [place], [address], 01/19/2024 10:39:46 Patient TargetsNo targets recorded. Patient Instructions Encounter Date Encounter Id Patient Instructions Last Modified By Organization Details Last Modified Time 10/13/2023 [id number] I would like to see you back in the office in one week to go over your lab results. Me gustar??a verlo nuevamente en la oficina en eder semana para repasar los resultados de lim laboratorio. Not available 10/13/2023 10:04:36 12/22/2023 [id number] you have mild fatty liver disease. it is important to increase fruits and vegetables. decrease on fatty and carbohydrate (bread, pasta, potatoes, rice, sweets) foods to help with weight loss start on pantoprazole 40mg 1 tablet once daily 30 minutes before breakfast with full glass of water use benefiber 1 scoop once daily with your green juice There are many lifestyle changes you can make to reduce or eliminate reflux. These include decreasing alcohol intake, quitting smoking, eating too close to bedtime, losing weight if needed, and wearing tight clothing. Some foods also trigger GERD. I recommend cutting back on chocolate, caffeine , peppermints, and greasy, spicy, and acidic foods. do stool samples and bring back here Call with any questions or concerns usted tiene eder enfermedad leve del h??gado graso. es importante aumentar las frutas y verduras. Disminuci??n del consumo de alimentos grasos y carbohidratos (kamara, pasta, patatas, arroz, dulces) para ayudar a perder peso. comience con pantoprazol 40 mg 1 tableta eder vez al d??a 30 minutos antes del desayuno con un vaso lleno de agua use Benefit (benefiber) 1 cucharada eder vez al d??a con lim jugo anita Hay muchos cambios en el estilo de jimmy que puede realizar para reducir o eliminar el reflujo. Estos incluyen disminuir el consumo de alcohol, dejar de fumar, comer demasiado cerca de la hora de acostarse, perder peso si es necesario y usar ropa ajustada. Algunos alimentos tambi??n desencadenan ERGE. Recomiendo reducir el consumo de chocolate, cafe??na, menta y alimentos grasosos, picantes y ??cidos. ashley muestras de heces y traerlas aqu?? Llame con cualquier pregunta o inquietud. Not available 12/22/2023 11:07:08 01/19/2024 [id number] continue on the pantoprazole 40mg 1 capsule in the morning with full glass of water 30 minutes before eating There are many lifestyle changes you can make to reduce or eliminate reflux. These include decreasing alcohol intake, quitting smoking, eating too close to bedtime, losing weight if needed, and wearing tight clothing. Some foods also trigger GERD. I recommend cutting back on chocolate, caffeine , peppermints, and greasy, spicy, and acidic foods. the pain you are having in your upper abdomen/chest area is likely caused by the acid reflux. i do not feel anything on the outside on your exam contin??e con pantoprazol 40 mg 1 c??psula por la ma??diego con un vaso lleno de agua 30 minutos antes de comer Hay muchos cambios en el estilo de jimmy que puede realizar para reducir o eliminar el reflujo. Estos incluyen disminuir el consumo de alcohol, dejar de fumar, comer demasiado cerca de la hora de acostarse, perder peso si es necesario y usar ropa ajustada. Algunos alimentos tambi??n desencadenan ERGE. Recomiendo reducir el consumo de chocolate, cafe??na, menta y alimentos grasosos, picantes y ??cidos. El dolor que siente en la parte superior del abdomen/??david del pecho probablemente sea causado por el reflujo ??cido. No siento nada en el exterior en tu examen. Not available 01/19/2024 10:41:34 Reason for Referral None Reported. Results Created Date Observation Date Name Description Value Unit Range Abnormal Flag LastModifiedBy Organization Detail LastModifiedTime 10/13/19 24 10/13/2023 COMPL ETE BLOOD COUNT W/DIF F WBC 10.03 10_3/ uL 4.4-10 .8 normal Not Available [facility] (Registration ) [address] [place] [address] [place], [address], 10/13/2023 19:11:43 10/13/19 24 10/13/2023 COMPL ETE BLOOD COUNT W/DIF F RBC 4.72 10_6/ uL 3.93-5 .22 normal Not Available [facility] (Registration ) [address] [place] [address] [place], [address], 10/13/2023 19:11:43 10/13/19 24 10/13/2023 COMPL ETE BLOOD COUNT W/DIF F HGB 14.4 g/dL 11.2-1 5.7 normal Not Available [facility] (Registration ) [address] [place] [address] [place], [address], 10/13/2023 19:11:43 10/13/19 24 10/13/2023 COMPL ETE BLOOD COUNT W/DIF F HCT 43.8 % 36.0-4 6.0 normal Not Available [facility] (Registration ) [address] [place] [address] [place], [address], 10/13/2023 19:11:43 10/13/19 24 10/13/2023 COMPL ETE BLOOD COUNT W/DIF F MCV 93 fL 80-95 normal Not Available [facility] (Registration ) [address] [place] [address] [place], [address], 10/13/2023 19:11:43 10/13/19 24 10/13/2023 COMPL ETE BLOOD COUNT W/DIF F MCH 30.5 pg 27.0-3 3.0 normal Not Available [facility] (Registration ) [address] [place] [address] [place], [address], 10/13/2023 19:11:43 10/13/19 24 10/13/2023 COMPL ETE BLOOD COUNT W/DIF F MCHC 32.9 % 32.0-3 6.0 normal Not Available [facility] (Registration ) [address] [place] [address] [place], [address], 10/13/2023 19:11:43 10/13/19 24 10/13/2023 COMPL ETE BLOOD COUNT W/DIF F RDW 12.7 % 11.7-1 4.6 normal Not Available [facility] (Registration ) [address] [place] [address] [place], [address], 10/13/2023 19:11:43 10/13/19 24 10/13/2023 COMPL ETE BLOOD COUNT W/DIF F platelet count 265 10_3/ uL 130-40 0 normal Not Available [facility] (Registration ) [address] [place] [address] [place], [address], 10/13/2023 19:11:43 10/13/19 24 10/13/2023 COMPL ETE BLOOD COUNT W/DIF F MPV 10.9 fL 8.0-11 .0 normal Not Available [facility] (Registration ) [address] [place] [address] [place], [address], 10/13/2023 19:11:43 03/14/10/13/2023 COMPL ETE BLOOD COUNT W/DIF F neutrophils % 48.4 Not Available [facility] (Registration ) [address] [place] [address] [place], [address], 10/13/2023 19:11:43 10/13/19 24 10/13/2023 COMPL ETE BLOOD COUNT W/DIF F lymphocytes % 41.9 Not Available [facility] (Registration ) [address] [place] [address] [place], [address], 10/13/2023 19:11:43 10/13/19 24 10/13/2023 COMPL ETE BLOOD COUNT W/DIF F monocytes % 5.5 Not Available [facility] (Registration ) [address] [place] [address] [place], [address], 10/13/2023 19:11:43 10/13/19 24 10/13/2023 COMPL ETE BLOOD COUNT W/DIF F eosinophils % 3.5 Not Available [facility] (Registration ) [address] [place] [address] [place], [address], 10/13/2023 19:11:43 10/13/19 24 10/13/2023 COMPL ETE BLOOD COUNT W/DIF F basophils % 0.5 Not Available [facility] (Registration ) [address] [place] [address] [place], [address], 10/13/2023 19:11:43 10/13/19 24 10/13/2023 COMPL ETE BLOOD COUNT W/DIF F immature grans % 0.2 Not Available [facility] (Registration ) [address] [place] [address] [place], [address], 10/13/2023 19:11:43 10/13/19 24 10/13/2023 COMPL ETE BLOOD COUNT W/DIF F nucleated RBC 0.0 % 0.0-0. 3 normal Not Available [facility] (Registration ) [address] [place] [address] [place], [address], 10/13/2023 19:11:43 10/13/19 24 10/13/2023 COMPL ETE BLOOD COUNT W/DIF F absolute neutrophil count 4.86 10_3/ uL 1.2-6. 7 normal Not Available [facility] (Registration ) [address] [place] [address] [place], [address], 10/13/2023 19:11:43 10/13/19 24 10/13/2023 COMPL ETE BLOOD COUNT W/DIF F absolute lymphocyte count 4.20 10_3/ uL 1.2-3. 4 high Not Available [facility] (Registration ) [address] [place] [address] [place], [address], 10/13/2023 19:11:43 10/13/19 24 10/13/2023 COMPL ETE BLOOD COUNT W/DIF F absolute monocyte count 0.55 10_3/ uL 0.1-0. 8 normal Not Available [facility] (Registration ) [address] [place] [address] [place], [address], 10/13/2023 19:11:43 10/13/19 24 10/13/2023 COMPL ETE BLOOD COUNT W/DIF F absolute eosinophil count 0.35 10_3/ uL 0.0-0. 7 normal Not Available [facility] (Registration ) [address] [place] [address] [place], [address], 10/13/2023 19:11:43 10/13/19 24 10/13/2023 COMPL ETE BLOOD COUNT W/DIF F absolute basophil count 0.05 10_3/ uL 0.0-0. 2 normal Not Available [facility] (Registration ) [address] [place] [address] [place], [address], 10/13/2023 19:11:43 10/13/19 24 10/13/2023 ESR ESR 11 mm/HR 0-20 normal Not Available [facility] (Registration ) [address] [place] [address] [place], [address], 10/13/2023 19:18:42 10/13/19 24 10/13/2023 COMPR EHENS DERIAN METAB OLIC PANEL calcium 9.5 mg/dL 8.5-10 .1 normal Not Available [address] [place], [address] 10/13/2023 19:34:46 10/13/19 24 10/13/2023 COMPR EHENS DERIAN METAB OLIC PANEL glucose 106 mg/dL 74-106 normal Not Available [address] [place], [address] 10/13/2023 19:34:46 10/13/19 24 10/13/2023 COMPR EHENS DERIAN METAB OLIC PANEL BUN 15 mg/dL 7-18 normal Not Available [address] [place], [address] 10/13/2023 19:34:46 10/13/19 24 10/13/2023 COMPR EHENS DERIAN METAB OLIC PANEL creatinine 0.6 mg/dL 0.55-1 .02 normal Not Available [address] [place], [address] 10/13/2023 19:34:46 10/13/19 24 10/13/2023 COMPR EHENS DERIAN METAB OLIC PANEL estimated GFR 113.44 mL/min /1.73m 2 Not Available [address] [place], [address] 10/13/2023 19:34:46 10/13/19 24 10/13/2023 COMPR EHENS DERIAN METAB OLIC PANEL total protein 7.8 g/dL 6.4-8. 2 normal Not Available [address] [place], [address] 10/13/2023 19:34:46 10/13/19 24 10/13/2023 COMPR EHENS DERIAN METAB OLIC PANEL albumin 3.8 g/dL 3.4-5. 0 normal Not Available [address] [place], [address] 10/13/2023 19:34:46 10/13/19 24 10/13/2023 COMPR EHENS DERIAN METAB OLIC PANEL bilirubin, total 0.3 mg/dL 0.2-1. 0 normal Not Available [address] [place], [address] 10/13/2023 19:34:46 10/13/19 24 10/13/2023 COMPR EHENS DERIAN METAB OLIC PANEL alk phos 126 U/L 46-116 high Not Available [address] [place], [address] 10/13/2023 19:34:46 10/13/19 24 10/13/2023 COMPR EHENS DERIAN METAB OLIC PANEL sodium 141 mmol/ L 136-14 5 normal Not Available [address] [place], [address] 10/13/2023 19:34:46 10/13/19 24 10/13/2023 COMPR EHENS DERIAN METAB OLIC PANEL potassium 4.0 mmol/ L 3.5-5. 1 normal Not Available [address] [place], [address] 10/13/2023 19:34:46 10/13/19 24 10/13/2023 COMPR EHENS DERIAN METAB OLIC PANEL chloride 104 mmol/ L 98-107 normal Not Available [address] [place], [address] 10/13/2023 19:34:46 10/13/19 24 10/13/2023 COMPR EHENS DERIAN METAB OLIC PANEL CO2 26.6 mmol/ L 21.0-3 2.0 normal Not Available [address] [place], [address] 10/13/2023 19:34:46 10/13/19 24 10/13/2023 COMPR EHENS DERIAN METAB OLIC PANEL anion gap 10.4 mmol/ L 3-11 normal Not Available [address] [place], [address] 10/13/2023 19:34:46 10/13/19 24 10/13/2023 COMPR EHENS DERIAN METAB OLIC PANEL AST 44 U/L 15-37 high Not Available [address] [place], [address] 10/13/2023 19:34:46 10/13/19 24 10/13/2023 COMPR EHENS DERIAN METAB OLIC PANEL ALT 78 U/L 14-59 high Not Available Justin vieira [address] [place], [address] 10/13/2023 19:34:46 10/13/19 24 10/13/2023 TSH TSH 2.29 uIU/m L 0.36-3 .74 normal Not Available [facility] (Registration ) [address] [place] [address] [place], [address], 10/13/2023 19:34:46 10/13/19 24 10/17/2023 ANTI NUCLE AR ANTIB CRISTIAN, IFA DIEGO interpretati on Negati ve negati ve Not Available [address] [place], [address] 10/17/2023 16:45:23 10/13/19 24 10/17/2023 LYME AB W RFLX TO LYME CONFI RM lyme Ab W rflx to lyme confirm Negati ve negati ve Not Available [address] [place], [address] 10/17/2023 16:45:23 10/13/19 24 10/16/2023 TICK- BORNE DNA PANEL , PCR, B anaplasma phagocytophi lum Negati ve negati ve Not Available [address] [place], [address] 10/17/2023 16:45:24 10/13/19 24 10/16/2023 TICK- BORNE DNA PANEL , PCR, B ehrlichia chaffeensis Negati ve negati ve Not Available [address] [place], [address] 10/17/2023 16:45:24 10/13/19 24 10/16/2023 TICK- BORNE DNA PANEL , PCR, B ehrlichia ewingii/cani s Negati ve negati ve Not Available [address] [place], [address] 10/17/2023 16:45:24 10/13/19 24 10/16/2023 TICK- BORNE DNA PANEL , PCR, B ehrlichia muris eauclairensi s Negati ve negati ve Not Available [address] [place], [address] 10/17/2023 16:45:24 10/13/19 24 10/16/2023 TICK- BORNE DNA PANEL , PCR, B babesia microti Negati ve negati ve Not Available [address] [place], [address] 10/17/2023 16:45:24 10/13/19 24 10/16/2023 TICK- BORNE DNA PANEL , PCR, B babesia duncani Negati ve negati ve Not Available [address] [place], [address] 10/17/2023 16:45:24 10/13/19 24 10/16/2023 TICK- BORNE DNA PANEL , PCR, B babesia divergens/MO -1 Negati ve negati ve Not Available [address] [place], [address] 10/17/2023 16:45:24 10/13/19 24 10/16/2023 TICK- BORNE DNA PANEL , PCR, B B. miyamotoi PCR Negati ve negati ve Not Available [address] [place], [address] 10/17/2023 16:45:24 12/22/19 24 12/26/2023 OVA ADELITA ITE parasite growth SEE BELOW Not Available [address] [place], [address] 12/27/2023 10:00:27 12/22/19 24 12/27/2023 HELIC OBACT ER PYLOR I AG, FECES helicobacter pylori Ag, feces Negati ve negati ve Not Available [address] [place], [address] 12/27/2023 14:45:19 11/10/19 24 11/10/2023 US, abdom en ABNORM AL FINDIN G PROCED URE INFORM ATION: Exam: US Abdome n, Limite d; Right Upper Quadra nt Exam date and time: 024 10:47 AM Age: 43 years old Clinic al indica tion: Abd pain, ruq elevat ed lfts TECHNI QUE: Imagin g protoc ol: Real time ultras ound of the abdome n with image docume ntatio n. Limite d exam focuse d on the right upper quadra nt. Total images : 74 COMPAR SERGIO: No releva nt prior studie s availa ble. FINDIN GS: Liver: Mild fatty infilt ration of the liver. Gallbl adder: No eviden ce of cholel ithias is or cholec ystiti s. Biliar y ducts: Normal . No stones . No dilati on. Pancre as: Visual ized pancre as is unrema rkable . Right kidney : Normal . No mass. No hydron ephros is. IMPRES [place]: 1. Mild fatty infilt ration of the liver. 2. No eviden ce of cholel ithias is or cholec ystiti s. Report signed by: Amena Ambrose on On 2023 19:04: 56 [email or web address], [place], [address], 12/02/2023 07:50:38 Result Notes None recorded. Problems Name Status Onset Date Resolution Date Notes Provider Name and Address Organization Details Recorded Time Adult health examination Completed 201910/07/2023 Maxine Aleksey [facility] 4 11:29:50 Epigastric pain Active 2020 Maxine Aleksey [facility] 4 11:30:31 [facility] 4 11:29:59 Abdominal pain Completed 202112/22/[address], [place], [address] [place] [address] 4 11:00:29 Pelvic and perineal pain Active 2021 Maxine Ryder [facility] 4 11:33:06 Non-scarring alopecia Active 2021 [facility] 4 11:32:52 Menopause present Active 2021 Hot flashes [facility] 4 11:32:29 Gynecologic examination Active 2021 [facility] 4 11:30:51 Headache Completed 202211/10/2022 unspecified [place] [facility] 4 11:31:35 Hordeolum externum of left eyelid Active 2022 Maxine Aleksey [facility] 4 11:31:56 Muscle pain Active 2023 JEFF DOUGLASS [address], [place], [address], [facility] 4 09:51:56 Fever Completed 202312/22/2023 MARGOTH MARTINEZ PA-C [address], [place], [address], [facility] 4 10:54:47 Fatigue Active 2023 JEFF DOUGLASS [address], [place], [address], [facility] 4 09:54:48 Steatosis of liver Active 2023 mild MARGOTH MARTINEZ PA-C [address], [place], [address], [facility] 4 11:00:41 Problem Notes None recorded. Procedures Surgical History Date Name Laterality Status Provider Name and Address Organization Details Recorded Time 2 Date of Last Pap Smear completed Amber Rivera RN null, [facility] 10/11/2023 12:50:47 2 Colonoscopy completed Amber Rivera RN null, [facility] 10/11/2023 12:51:57 Imaging Results Imaging Date Name Status [facility]Modified by [facility] Details LastModified Time 11/10/2023 US, abdomen completed [email or web address] [facility] [address], [place], [address], 12/02/2023 07:50:38 Procedure Notes None recorded. Medical Equipment None Reported. Allergies No known drug allergies Medications Name Sig Start Date Stop Date Status Note LastModified by Organization Details LastModified Time levonorge strel-eth inyl estradiol 0.1 mg-20 mcg tablet Take 1 tab by mouth daily 2019 active from old ob provider Not Available Not Available Not Available omeprazol e 40 mg capsule,d elayed release Take 1 capsule by mouth once a day 30 minutes prior to eating 12/21 completed Patient has been on medicati on in the past for abdomina l pain, does have upcoming appointm ent Not Available Not Available Not Available pantopraz ole 40 mg tablet,de layed release Take 1 tablet by once daily on empty stomach 30 minutes before eating with full glass of water 2023 active Not Available Not Available Not Avai lable polymyxin B sulfate 10,000 unit-trim ethoprim 1 mg/mL eye drops INSTILL ONE DROP INTO THE EYES EVERY 3 HOURS FOR 7 DAYS WHILE AWAKE - DO NOT EXCEED 6 DOSES IN 24 HOURS 10/12 completed Not Available Not Available Not Available omeprazol e 20 mg capsule,d elayed release Take 1 capsule by mouth once a day 30 minutes prior to eating 2020 active Not Available Not Available Not Avai lable Sprintec (28) 0.25 mg-35 mcg tablet Take 1 tablet by mouth every morning 02/22 completed Not Available Not Available Not Available Chateal EQ (28) 0.15 mg-0.03 mg tablet Take 1 tablet by mouth once a day 11/10 completed Not Available Not Available Not Available Vitals Date Recorded Body height Body mass index (BMI) Body weight Oxygen saturation Oxygen saturation in Arterial blood by Pulse oximetry Heart rate Systolic blood pressure Diastolic blood pressure Provider Name and Address Organization Details Last Updated DateTime 147.955 cm 36.3 kg/m2 01954.6 6 g 96 % 96 % 70 /min 138 mm[Hg] 88 mm[Hg] KEENAN GORDON RN [facility] 4 09:22:20 Date Recorded Body height Body mass index (BMI) Body weight Body temperature Oxygen saturation Oxygen saturation in Arterial blood by Pulse oximetry Heart rate Respiratory rate Systolic blood pressure Diastolic blood pressure Provider Name and Address Organization Details Last Updated DateTime 4 147.955 cm 35.6 kg/m2 85259.8 9 g 97.2 [degF] 97 % 97 % 70 /min 18 /min 120 mm[Hg] 70 mm[Hg] VEE MILLS LPN [facility] 4 10:37:56 Date Recorded Body height Oxygen saturation Oxygen saturation in Arterial blood by Pulse oximetry Heart rate Systolic blood pressure Diastolic blood pressure Provider Name and Address Organization Details Last Updated DateTime 4 147.955 cm 96 % 96 % 70 /min 122 mm[Hg] 74 mm[Hg] ARRON GUNDERSON MA [facility] 4 10:18:50 Date Recorded Body height Body mass index (BMI) Body weight Oxygen saturation Oxygen saturation in Arterial blood by Pulse oximetry Heart rate Systolic blood pressure Diastolic blood pressure Provider Name and Address Organization Details Last Updated DateTime 4 147.955 cm 35.9 kg/m2 70938.9 2 g 97 % 97 % 67 /min 128 mm[Hg] 68 mm[Hg] ARRON GUNDERSON MA [facility] 4 13:53:03 Social History Question Answer Notes LastModified by Organizat ion Details LastModified Time Tobacco Smoking Status Never Smoker Amber Rivera RN null, [facility], [facility] 10/11/2023 12:52:24 Do You Have An Advance Directive? No [email or web address] Information not available 10/11/2023 What Was The Date Of Your Most Recent Tobacco Screening? 12/22/2023 [email or web address] Information not available 12/22/2023 Sex: Female Functional Status None recorded. Mental Status None recorded. Family History Relationship Description Onset Age of this Age Resolved Age Notes Notes:*Problem: Mother- 66, HTN no other significant family hx Medical History No medical history recorded. Gynecological History Statement/Question Response Date of Last Pap Smear 02/24/2022 Obstetrics History GPAL:G 0 P 0 0 0 0 Immunizations Vaccine Type Date Status Provider Name and Address Organization Details Recorded Time Tdap 03/14/2020 completed Not Available [facility] 06:[facility] COVID-19, mRNA, LNP-S, PF, 100 mcg/0.5mL dose or 50 mcg/0.25mL dose 11/20/2020 completed Not Available [facility] 06/10/2023 06:12:01 COVID-19, mRNA, LNP-S, PF, 100 mcg/0.5mL dose or 50 mcg/0.25mL dose 12/20/2020 completed Not Available [facility] 06/10/2023 06:12:01 Past Encounters Encounter ID Performer Location Encounter Start Date Encounter Closed Date Diagnosis/Indication Diagnosis SNOMED-CT Code [id number] PILO FERRARA [address] [address] 10/13/2023 08:55:58 10/13/2023 10:22:19 Muscle pain 31733716 Fever 033038164 Fatigue 30746461 [id number] MARGOTHMITALI SHAH[address] [address] 12/22/2023 10:24:33 12/22/2023 11:31:33 Epigastric pain 48908087 Non-alcoho lic fatty liver disease 0399137391 Constipation 66392004 [id number] MARGOTH MARTINEZ[address] [address] 01/19/2024 10:02:56 01/19/2024 10:53:14 Epigastric pain 00227355 [id number] MARGOTHMITALI MARTINEZ[address] [address] 03/08/2024 13:43:17 03/08/2024 15:02:28 Epigastric pain 41661064 Chest pain 53605602 Dizziness 606780166 Health Concerns Section Related Observation LastModified by Organization Detai ls LastModified Time None Recorded Concern Status LastModified by Organization Details LastModified Time None Recorded Advance Directives Directive N: Payers Encounter Date Sequence Insurance Name Policy Number Policy Parrish Covered Member ID Parrish Member ID Guarantor Name 12/22/2023 1 *SELF PAY* Ne yuli Naranjo 01/19/2024 1 *SELF PAY* Ne yuli Naranjo Notes Date Note Type Note Provider Name and Address Organization Details Recorded Time 10/13/2023 text/html HPI Notes: cc Feeling sick Unfortunately our translation line was not working, 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 Was told by in [facility] that she had infection in her blood and recommended treatment with Ceftriaxone and Delocfenac IM 2 months ago. No blood was drawn and she didn't feel better after the injection and pain medicine. No history of tic bite, no hx of exposure to TB. Feels SOB with walking up stairs, has never had COVID and has never had a chest xray. Has constipation and muscle aches, no rash Last menses about a year ago, has intermittet hot flashes Has significant fatigue PILO FERRARA, BRAND DEVELOPMENT MANAGER [address], [place], [address], [facility]. 10/13/2023 11:03:39 12/22/2023 text/html HPI Notes: 43-year-old female patient presents with epigastric pain The patient has been experiencing epigastric pain for the past few months.She was prescribed omeprazole but does not feel it has been helpful. she only tried it for 1 week. she has been using baking soda with lemon with a little relief. She does report having frequent heartburn. She does struggle with constipation. She only has small little bowel movements per day. She denies fevers, chills, sweats, nausea, vomiting, hematochezia, diarrhea and melena. She is up-to-date on colonoscopy and EGD. She denies unintentional weight loss. The patient has also been diagnosed with mild fatty liver disease through a previous ultrasound. No gallstones were found. 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 Social Determinants - Access to healthcare - Employment conditions MARGOTH MARTINEZ PA-C [address], [place], [address], [facility] 12/22/2023 11:48:14 01/19/2024 text/html HPI Notes: The patient presents for follow-up of epigastric pain. Epigastric pain: The patient is a 43-year-old female who was diagnosed with epigastric pain. She was switched from omeprazole to pantoprazole 40 mg once daily a month ago during her last appointment. She reports improvement in her stomach symptoms since the switch to pantoprazole. She is still having a ball like sensation in her upper abdomen/lower chest. constipation has improved with fiber supplement. - The patient is Gabonese speaking and uses a school bus driver/custodian during appointments. MARGOTH MARTINEZ PA-C [address], [place], [address], [facility]. 01/19/2024 12:39:02 OBGyn Episode No OBEpisode recorded.
--- OUTSIDE RECORDS SUMMARY | 2024-03-08 22:15 | XMS_ITS | Continuity of Care Document ---
Author Organization [place] - [facility], [facility] Address [address] [place] [address] Assessment Encounter Date Assessment Date Assessment LastModified by Organization Details LastModified Time 12/22/2023 12/22/2023 The patient presents with epigastric pain which have worsened over the past few months. Omeprazole was prescribed but has not been effective. Pt only tried omeprazole for 1 week The patient has a history of mild fatty liver disease but no gallstones. The presence of heartburn and burning sensation in the chest is also noted. Not available 12/22/2023 11:47:16 Plan of Treatment Reminders Order Date Submit Date Provider Last Modified By Organization Details Last Modified Time Details Appointments Follow Up 2023 02:10P M MARGOTH MARTINEZ Not available Not available Not available Follow Up 2023 03:10P M MARGOTH MARTINEZ Not available Not available Not available Lab H pylori Ag, stool 2023 024 SIXTO [facility] (Registration ), [address] [place] [address] [place], [address], 12/27/2023 14:45:19 O&P (ova & parasites ), stool 2023 024 [email or web address] [facility] (Registration ), [address] [place] [address] [place], [address], 12/29/2023 07:30:11 Referral None recorded. Procedures None recorded. Surgeries None recorded. Imaging None recorded. Medication Orders pantopraz ole 40 mg tablet,de layed release 2023 024 [facility], [address] [facility] [address], [place], [address], 12/22/2023 11:39:13 Patient TargetsNo targets recorded. Patient Instructions Encounter Date Encounter Id Patient Instructions Last Modified By Organization Details Last Modified Time 12/22/2023 [id number] you have mild fatty liver disease. it [...] pregunta o inquietud. Not available 12/22/2023 11:07:08 Reason for Referral None Reported. Results Created Date Observation Date Name Description Value Unit Range Abnormal Flag LastModifiedBy Organization Detail LastModifiedTime 12/22/19 24 12/27/2023 HELIC OBACT ER PYLOR I AG, FECES helicobacter pylori Ag, feces Negati ve negati ve Not Available [facility] [address] [facility] , [place], [address] 12/27/2023 14:45:19 Result Notes None recorded. Problems Name Status Onset Date Resolution Date Notes Provider Name and Address Organization Details Recorded Time Adult health examination Completed 201910/07/2023 Maxine Aleksey [facility], [facility] 4 11:29:50 [facility] 4 11:30:31 Contraception care management Active 2020 [facility] 4 11:29:59 Abdominal pain Completed 202112/22/2023 MARGOTH MARTINEZ PA-C [address], [place], [address] [place] [address]. 4 11:00:29 Pelvic and perineal pain [facility] 4 11:33:06 Non-scarring alopecia Active 2021 Hair loss [facility] 4 11:32:52 Menopause present Active 2021 Hot flashes [facility] 4 11:32:29 Gynecologic examination Active 2021 [facility] 4 11:30:51 Headache Completed 202211/10/2022 unspecified Maxine english, [facility] 4 11:31:35 Hordeolum externum of left eyelid Active 2022 Maxine english, [facility] 4 11:31:56 Muscle pain Active 2023 JEFF DOUGLASS [address], [place], [address], [facility] 4 09:51:56 Fever Completed 202312/22/2023 MARGOTH MARTINEZ PA-C [address], [place], [address], [facility] 4 10:54:47 Fatigue Active [address], [place], [address], [facility] 4 09:54:48 Steatosis of liver Active [address], [place], [address], [facility] 4 11:00:41 Problem Notes None recorded. Procedures Surgical History Date Name Laterality Status Provider Name and Address Organization Details Recorded Time 2 Date of Last Pap Smear completed Amber Rivera RN null, [facility] 10/11/2023 12:50:47 2 Colonoscopy completed Amber Rivera RN null, [facility] 10/11/2023 12:51:57 Imaging Results None recorded. Procedure Notes None recorded. Medical Equipment None [...] Updated DateTime 4 147.955 cm 35.6 kg/m2 32155.8 9 g 97.2 [degF] 97 % 97 % 70 /min 18 /min 120 mm[Hg] 70 mm[Hg] VEE MILLS LPN [facility] 4 10:37:56 Social History Question Answer Notes LastModified by Organizat ion Details LastModified Time Tobacco Smoking Status Never Smoker Amber Rivera RN [facility], [facility] 10/11/2023 12:52:24 Do You Have An [...] Recorded Time Tdap 03/14/2020 completed Not Available [facility] 06:12:01 COVID-19, mRNA, LNP-S, PF, 100 mcg/0.5mL dose or 50 mcg/0.25mL dose 11/20/2020 completed Not Available [facility] 06/10/2023 06:12:01 COVID-19, mRNA, LNP-S, PF, 100 mcg/0.5mL dose or 50 mcg/0.25mL dose 12/20/2020 completed Not Available [facility] 06/10/2023 06:12:01 Past Encounters Encounter ID Performer Location Encounter Start Date Encounter Closed Date Diagnosis/Indication Diagnosis SNOMED-CT Code [id number] MARGOTH MARTINEZ PA-C [address] [address] 12/22/2023 10:24:33 12/22/2023 11:31:33 Epigastric pain 42226391 Non-alcoho lic fatty liver disease 1474511897 Constipation 02144714 Health Concerns Section Related Observation LastModified by Organization Detai ls LastModified Time None Recorded Concern Status LastModified by Organization Details LastModified Time None Recorded Payers Encounter Date Sequence Insurance Name Policy Number Policy Parrish Covered Member ID Parrish Member ID Guarantor Name 12/22/2023 1 *SELF PAY* Delores Naranjo Notes Date Note Type Note Provider Name and Address Organization Details Recorded Time 12/22/2023 text/html HPI Notes: 43-year-old female patient [...] conditions MARGOTH MARTINEZ PA-C [address], [place], [address], [facility] 12/22/2023 11:48:14 OBGyn Episode No OBEpisode recorded.
--- OUTSIDE RECORDS SUMMARY | 2024-03-08 22:15 | XMS_ITS | Referral Summary ---
Author Organization [facility] Address [address] [place] [address] Care Team Providers Care Paper Tube Cutter Name Role Phone Veronica Pro HANDLE SANDER OPERATOR Primary Care Provider [phone] Encounters Date Type Department Care Team Description 12/23/2023 Lab Requisition [facility] Pathology & Laboratory [address] [address] Outr Resulting Lab, Provider 12/23/2023 Lab Requisition [facility] Pathology & Laboratory [address] [address] Outr Resulting Lab, Provider from Last 3 Months Social History Tobacco Use Types Packs/Day Years Used Date Smoking Tobacco: Never Assessed Sex and Gender Information Value Date Recorded Sex Assigned at Not on file Gender Identity Not on file Sexual Orientation Not on file Plan of Treatment Not on file Procedures Procedure Name Priority Date/Time Associated Diagnosis Comments OVA/PARASITE EXAM Routine 12/22/2023 11: 30 EDT H. PYLORI ANTIGEN Routine 12/22/2023 11: 30 EDT from Last 3 Months Results * H. PYLORI ANTIGEN (12/22/2023 11:30 EDT) H. Pylori Negative Negative 12/27/2023 13:41 EDT [facility] Comment:Indicates the absenc e of H. pylori stool antigen, (or the level of antigen is below that which can be detected by the assay) Feces SPECIMEN FROM RECTUM / Unknown 12/22/2023 11:30 EDT 12/23/2023 17:54 EDT Narrative [facility] - 12/27/2023 13:41 EDT New Liaison XL testing method used as of 05/23/2023 Provider Outr Resulting Lab MICROBIOLOGY - GENERAL ORDERABLES Performing Organization Address City/[facility]/ZIP Co de Phone Number [facility] [address] [place], [place] [phone] * OVA/PARASITE EXAM (12/22/2023 11:30 EDT) Parasite No ova and parasites seen. 12/26/2023 11:43 EDT [facility] Feces SPECIMEN FROM RECTUM / Unknown 12/22/2023 11:30 EDT 12/23/2023 18:49 EDT Narrative [facility] - 12/26/2023 11:43 EDT (If Cryptosporidium, Cyclospora, or Microsporidium are suspected, specific tests must be requested.) Single negative specimen does not rule out the possibility of a parasitic infection. Provider Outr Resulting Lab MICROBIOLOGY - GENERAL ORDERABLES Performing Organization Address [facility] Co de Phone Number [facility] [address] [place] [phone] from Last 3 Months Care Teams Paper Tube Cutter Relationship Specialty Start Date End Date Veronica Pro NP PCP - General 12/30/21
--- OUTSIDE RECORDS SUMMARY | 2024-03-08 22:15 | XMS_ITS | Encounter Summary ---
Author Organization [facility] Address [address] [place] [address] Care Team Providers Care Director Dance Name Role Phone Veronica Pro PAINTER BARREL Primary Care Provider Encounter Details Date Type Department Care Team (Late st Contact Info) Description 10/07/2021 Lab Requisition [facility] Pathology & Laboratory Medicine - [address] [address] Outr Resulting Lab, Provider Social History Tobacco Use Types Packs/Day Years Used Date Smoking Tobacco: Never Assessed Sex and Gender Information Value Date Recorded Sex Assigned at Not on file Gender Identity Not on file Sexual Orientation Not on file documented as of this encounter Plan of Treatment Not on file documented as of this encounter Procedures Procedure Name Priority Date/Time Associated Diagnosis Comments ZZCOVID-19 TEST [facility] PCR Today 10/06/2021 16:30 EST COVID-19 TESTING Routine 10/06/2021 16:3 0 EST documented in this encounter Results * COVID-19 TEST [facility] PCR (10/06/2021 16:30 EST) Swab 10/06/2021 16:3 0 EST 10/07/2021 16:15 EST Provider Outr Resulting Lab MICROBIOLOGY - GENERAL ORDERABLES [facility] [address] [place] [address] * COVID-19 TESTING (10/06/2021 16:30 EST) COVID-19 rt-PCR Result Negative Negative 10/08/2021 11:24 EST [facility] Comment: This test has not been FDA cleared or approved. This test has been authorized by FDA under an EUA for use by authorized laboratories. This test has been authorized only for detection of nucleic acid from 2019-nCoV, not for any other viruses or pathogens. This test is only authorized for the duration of the declaration that circumstances exist justifying the authorization of emergency use of in vitro diagnostic tests for detection and/or diagnosis of 2019-nCoV under section 564(b)(1) of Act, 21 U.S.C ?? 360bbb-3(b) (1), unless the authorization is terminated or revoked sooner. Negative results do not preclude 2019-nCoV infection and should not be used as the sole basis for treatment or other patient management decisions. Negative results must be combined with clinical observations, patient history, and epidemiological information. Testing was performed using the jah SARS-CoV-2 assay ([employer] on the Jah 6800 System Performing Lab Jah 6800 [facility] 10/08/2021 11:24 EST [facility] Swab 10/06/2021 16:3 0 EST 10/07/2021 16:15 EST Provider Outr Resulting Lab MICROBIOLOGY - GENERAL ORDERABLES [facility] [address] [place] [address] documented in this encounter Visit Diagnoses Not on filedocumented in this encounter Care Teams Director Dance Relationship Specialty Start Date End Date eVronica Pro NP PCP - General 12/30/21 documented as of this encounter
--- OUTSIDE RECORDS SUMMARY | 2024-03-08 22:15 | XMS_ITS | Encounter Summary ---
Author Organization [facility] Address [address] [place] [address] Care Team Providers Care Director Of Marketing Name Role Phone Veronica Pro PORCELAIN ENAMEL INSTALLER Primary Care Provider Encounter Details Date Type Department Care Team (Late st Contact Info) Description 12/23/2023 Lab Requisition [facility] Pathology & Laboratory Medicine - [address] [id number] Outr Resulting Lab, Provider Social History Tobacco [...] Procedure Name Priority Date/Time Associated Diagnosis Comments H. PYLORI ANTIGEN Routine 12/22/2023 11: 30 EDT documented in this encounter Results * H. PYLORI ANTIGEN (12/22/2023 11:30 EDT) H. Pylori Negative Negative 12/27/2023 13:41 EDT [facility] Comment:Indicates the absenc e of H. pylori stool antigen, (or the level of antigen is below that which can be detected by the assay) Feces SPECIMEN FROM RECTUM / Unknown 12/22/2023 11:30 EDT 12/23/2023 17:54 EDT Narrative [facility] - 12/27/2023 13:41 EDT New Liaison XL testing method used as of 05/23/2023 Provider Outr Resulting Lab MICROBIOLOGY - GENERAL ORDERABLES [facility] [address] [place] [address] documented in this encounter Visit Diagnoses Not on filedocumented in this encounter Care Teams Director Of Marketing Relationship Specialty Start Date End Date Veronica Pro NP PCP - General 12/30/21 documented as of this encounter
--- OUTSIDE RECORDS SUMMARY | 2024-03-08 22:15 | XMS_ITS | Encounter Summary ---
Author Organization [facility] Address [address] [place] [address] Care Team Providers Care Lidding Machine Operator Name Role Phone Veronica Pro DATA MODELING ARCHITECT Primary Care Provider [phone] Encounter Details Date Type Department Care Team (Late st Contact Info) Description 12/23/2023 Lab Requisition [facility] Pathology & Laboratory Medicine - [address] [address] Outr Resulting Lab, Provider Social History Tobacco [...] OVA/PARASITE EXAM Routine 12/22/2023 11: 30 EDT documented in this encounter Results * OVA/PARASITE EXAM (12/22/2023 11:30 EDT) Parasite No ova and parasites seen. 12/26/2023 11:43 EDT [facility] Feces SPECIMEN FROM RECTUM / Unknown 12/22/2023 11:30 EDT 12/23/2023 18:49 EDT Narrative [facility] - 12/26/2023 11:43 EDT (If Cryptosporidium, Cyclospora, or Microsporidium are suspected, specific tests must be requested.) Single negative specimen does not rule out the possibility of a parasitic infection. Provider Outr Resulting Lab MICROBIOLOGY - GENERAL ORDERABLES [facility] [address] [place], [place] [phone] documented in this encounter Visit Diagnoses Not on filedocumented in this encounter Care Teams Lidding Machine Operator Relationship Specialty Start Date End Date Veronica Pro NP PCP - General 12/30/21 documented as of this encounter
--- OUTSIDE RECORDS SUMMARY | 2024-03-08 22:15 | XMS_ITS | Encounter Summary ---
Author Organization [facility] Address [address] [place] [address] Care Team Providers Care Pilot Highway Patrol Name Role Phone Veronica Pro GROUND CREWMAN AIRCRAFT SUPPORT Primary Care Provider Encounter Details Date Type Department Care Team (Late st Contact Info) Description 02/24/2022 Lab Requisition [facility] Pathology & Laboratory Medicine - [facility] [address] [place] [address] Veronica Pro, GROUND CREWMAN AIRCRAFT SUPPORT [address], [place] [id number] Encounter for other general examination Social History Tobacco Use Types Packs/Day Years Used Date Smoking Tobacco: Never Assessed Sex and Gender Information Value Date Recorded Sex Assigned at Not on file Gender Identity Not on file Sexual Orientation Not on file documented as of this encounter Plan of Treatment Not on file documented as of this encounter Procedures Procedure Name Priority Date/Time Associated Diagnosis Comments PAP TEST Today 02/22/2022 16:50 EDT Encounter for other general examination HPV DNA DETECTION WITH GENOTYPING, PCR Today 02/22/2022 16:50 EDT Encounter for other general examination documented in this encounter Results * HUMAN PAPILLOMAVIRUS (HPV) DETECTION-HIGH RISK TYPES (02/22/2022 16:50 EDT) HPV other High Risk types, PCR Negative Negative 03/02/2022 22:57 EDT [facility] Comment:No E6 or E7 mRNA is detected from HPV types 16,18,31,33,35,39,45,51,52,56,58,59,66, and 68 by heating engineer mediated amplification. Papanicolaou smear specimen (specimen) CERVIX UTERI STRUCTURE / Unknown 02/22/2022 16:50 EDT 03/01/2022 15:20 EDT Veronica Pro NP MICROBIOLOGY - GENER AL ORDERABLES [facility] [address] [place] [address] * PAP TEST (02/22/2022 16:50 EDT) Specimens A. Cervix and/or Endocervix , ThinPrep Imaging System with Manual Evaluation 03/02/2022 22:58 EDT [facility] Specimen Adequacy Satisfactory for Evaluation - transformation zone component present 03/02/2022 22:58 EDT [facility] General Categorization Negative for intraepithelial lesion or malignancy 03/02/2022 22:58 EDT [facility] Attestation . 03/02/2022 22:58 EDT [facility] at 2257 Clinical History See below 03/02/20 22:58 EDT [facility] HPV The result for the Human Papillomavirus (HPV) Detection-High Risk Types is Negative. No E6 or E7 mRNA is detected from HPV types 16,18,31,33,35,39 ,45,51,52,56,58,5 9,66, and 68 by heating engineer mediated amplification.Jody ting was performed on specimen [id number] and was resulted on 03/02/2022 2231 EDT by JOEY, LAB INSTRUMENT RESULTS IN 03/02/2022 22:58 EDT [facility] Performing Lab [facility] 03/02/2022 22:58 EDT [facility] Scanned Images 03/02/2022 22:58 EDT [facility] Papanicolaou smear specimen (specimen) CERVIX UTERI STRUCTURE / Unknown 02/22/2022 16:50 EDT 02/24/2022 13:54 EDT Veronica Pro NP PATHOLOGY ORDERABLES [facility] [address] [place] [address] documented in this encounter Visit Diagnoses Diagnosis Encounter for other general examination documented in this encounter Care Teams Pilot Highway Patrol Relationship Specialty Start Date End Date Veronica Pro NP PCP - General 12/30/21 documented as of this encounter
--- OUTSIDE RECORDS SUMMARY | 2024-03-08 22:15 | XMS_ITS | Continuity of Care Document ---
Author Organization [place] [facility], [facility] Address [address] [place] [address] Assessment Encounter Date Assessment Date Assessment LastModified by Organization Details LastModified Time 01/19/2024 01/19/2024 The patient is a 43-year-old [...] Not available Not available Not available Lab None recorded. Referral None recorded. Procedures None recorded. Surgeries None recorded. Imaging None recorded. Medication Orders pantopraz ole 40 mg tablet,de layed release 2023 024 [id number], [address] [facility] [address], [place], [address], 01/19/2024 10:39:46 Patient TargetsNo targets recorded. Patient Instructions Encounter Date Encounter Id Patient Instructions Last Modified By Organization Details Last Modified Time 01/19/2024 [id number] continue on the pantoprazole 40mg 1 capsule [...] pantoprazol 40 mg 1 c??psula por la ma??lurdes con un vaso lleno de agua 30 [...] 01/19/2024 10:41:34 Reason for Referral None Reported. Problems Name Status Onset Date Resolution Date Notes Provider Name and Address Organization Details Recorded Time Adult health examination Completed 201910/07/2023 Maxine english [facility] 4 11:29:50 Epigastric pain Active 2020 Maxine english [facility] 4 11:30:31 Contraception care management Active 2020 Maxine english [facility] 4 11:29:59 Abdominal pain Completed 202112/22/2023 MARGOTH MARTINEZ PA-C [address], [place], [address] [place] [address] 4 11:00:29 Pelvic and perineal pain Active 2021 Maxine english, [facility] 4 11:33:06 Non-scarring alopecia Active 2021 Hair loss Maxineclayton [facility] 4 11:32:52 Menopause present Active 2021 Hot flashes [facility] 4 11:32:29 Gynecologic examination Active [address] [facility] 4 11:30:51 Headache Completed 202211/10/2022 unspecified [facility] 4 11:31:35 Hordeolum externum of left eyelid Active 2022 [facility] 4 11:31:56 Muscle pain Active [address], [place], [address], [facility] 4 09:51:56 Fever Completed 202312/22/[address], [place], [address], [facility] 4 10:54:47 Fatigue Active [address], [place], [address], [facility] 4 09:54:48 Steatosis of liver Active [address], [place], [address], [facility] 4 11:00:41 Problem Notes None recorded. Procedures Surgical History Date Name Laterality Status Provider Name and Address Organization Details Recorded Time 2 Date of Last Pap Smear completed Amber Rivera RN null, [facility] 10/11/2023 12:50:47 2 Colonoscopy completed Amber Rivera RN null, [facility] 10/11/2023 12:51:57 Imaging Results None recorded. Procedure [...] Not Available Vitals Date Recorded Body height Oxygen saturation Oxygen saturation in Arterial blood by Pulse oximetry Heart rate Systolic blood pressure Diastolic blood pressure Provider Name and Address Organization Details Last Updated DateTime 4 147.955 cm 96 % 96 % 70 /min 122 mm[Hg] 74 mm[Hg] ARRON GUNDERSON MA [facility] 10:18:50 Social History Question Answer Notes LastModified by Organizat ion Details LastModified Time Tobacco Smoking Status Never Smoker Amber Rivera RN null, [facility] 10/11/2023 12:52:24 Do You Have An Advance [...] Recorded Time Tdap 03/14/2020 completed Not Available [facility] 06:12:01 COVID-19, mRNA, LNP-S, PF, 100 mcg/0.5mL dose or 50 mcg/0.25mL dose 11/20/2020 completed Not Available [facility] 06/10/2023 06:12:01 COVID-19, mRNA, LNP-S, PF, 100 mcg/0.5mL dose or 50 mcg/0.25mL dose 12/20/2020 completed Not Available [facility] 06/10/2023 06:12:01 Past Encounters Encounter ID Performer Location Encounter Start Date Encounter Closed Date Diagnosis/Indication Diagnosis SNOMED-CT Code [id number] MARGOTH MARTINEZ PA-C [address] [address] 12/22/2023 10:24:33 12/22/2023 11:31:33 Epigastric pain [id number] Non-alcoho lic fatty liver disease [id number] Constipation [id number] MARGOTH MARTINEZ PA-C [address] [address] 01/19/2024 10:02:56 01/19/2024 10:53:14 Epigastric pain [id number] Health Concerns Section Related Observation LastModified by Organization Detai ls LastModified Time None Recorded Concern Status LastModified by Organization Details LastModified Time None Recorded Payers Encounter Date Sequence Insurance Name Policy Number Policy Parrish Covered Member ID Parrish Member ID Guarantor Name 01/19/2024 1 *SELF PAY* Delores yuli Meghana Naranjo Notes Date Note Type Note Provider Name and Address Organization Details Recorded Time 01/19/2024 text/html HPI Notes: The patient presents [...] with fiber supplement. - The patient is German speaking and uses a analyst food and beverage during appointments. MARGOTH MARTINEZ PA-C [address], [place], [address], [facility]. 01/19/2024 12:39:02 OBGyn Episode No OBEpisode recorded.
--- OUTSIDE RECORDS SUMMARY | 2024-03-08 22:15 | XMS_ITS | Encounter Summary ---
Author Organization [facility] Address [address] [place] [address] Care Team Providers Care Environmental Inspector Name Role Phone Veronica Pro MINERALOGY TEACHER Primary Care Provider Encounter Details Date Type Department Care Team (Late st Contact Info) Description 01/25/2022 Lab Requisition [facility] Pathology & Laboratory Medicine - [address] [address] Whitney Willis MD [address] [place] [address] [address] [place], [place] [phone] Encounter for other general examination Social History [...] Procedure Name Priority Date/Time Associated Diagnosis Comments SURGICAL PATHOLOGY Today 01/25/2022 7: 30 EDT Encounter for other general examination documented in this encounter Results * SURGICAL PATHOLOGY (01/25/2022 7:30 EDT) Note to Patient The following pathology results have been interpreted by your pathologist and may be available to you before your health provider has had the opportunity to review them. Please allow time for your provider to receive these results and explore management options, if applicable. 01/29/2022 14:08 EDT [facility] Final Diagnosis A. STOMACH, ANTRUM, BIOPSIES: - Gastric antral mucosa showing no specific pathologic abnormalities. B. STOMACH, POLYP, BIOPSIES: - Fundic gland polyps. C. ESOPHAGUS, GASTROESOPHAGEAL JUNCTION, BIOPSIES: - Junctional mucosa showing mild reactive changes. Negative for intestinal metaplasia. Negative for dysplasia. D. COLON, ASCENDING, POLYP, BIOPSY: - Benign colonic mucosal fold. See comment. E. COLON, TRANSVERSE, POLYP, BIOPSY: - Hyperplastic polyp. See comment. 01/29/2022 14:08 [facility] Diagnosis Comment Deeper levels into blocks D and E have been examined. 01/29/2022 14:08 [facility] Attestation By the signature below, the attending physician certifies that they have 1) personally conducted a gross and/or microscopic examination of the described specimen(s), and/or personally interpreted the results of laboratory testing of the described specimen(s), and 2) personally rendered or confirmed the above diagnosis. 01/29/2022 14:08 [facility] at 1408 Clinical History Abdominal pain 01/29/2022 14:08 [facility] Gross Description A. Received in formalin labelled with proper patient identification (initials R, N) and Bx's antrum are 3 bob-brown tissues (0.2 x 0.1 x 0.1 cm to 0.4 x 0.3 x 0.2 cm). Submitted entirely in A1. B. Received in formalin labelled with proper patient identification (initials R, N) and gastric polyps are two bob-brown polypoid tissues (0.2 x 0.2 x 0.2 cm each). Submitted entirely in B1. C. Received in formalin labelled with proper patient identification (initials R, N) and Bx's GE junction are two bob tissues (0.2 x 0.1 x 0.1 cm and 0.3 x 0.2 x 0.1 cm). Submitted entirely in C1. D. Received in formalin labelled with proper patient identification (initials R, N) and ascending colon polyp is a single bob tissue (0.5 x 0.3 x 0.1 cm). Submitted intact in D1. E. Received in formalin labelled with proper patient identification (initials R, N) and transverse colon polyp is a single bob tissue (0.4 x 0.3 x 0.1 cm). Submitted intact in E1. SOHEILA OSMAN(ASCP) 01/26/2022 9:09 01/29/2022 14:08 [facility] Performing Lab [facility] 14:08 EDT [facility] Scanned Images 01/29/2022 14:08 EDT [facility] Tissue ENTIRE TRANSVERSE COLON / Unknown 01/25/2022 7:30 EDT 01/25/2022 18:13 EDT Tissue specimen (specimen) SPECIMEN FROM STOMACH OBTAINED BY TOTAL GASTRECTOMY / Unknown 01/25/2022 7:30 EDT 01/25/2022 18:13 EDT Tissue specimen (specimen) ESOPHAGEAL STRUCTURE / Unknown 01/25/2022 7:30 EDT 01/25/2022 18:13 EDT Tissue specimen (specimen) ASCENDING COLON STRUCTURE / Unknown 01/25/2022 7:30 EDT 01/25/2022 18:13 EDT Tissue specimen (specimen) TRANSVERSE COLON STRUCTURE / Unknown 01/25/2022 7:30 EDT 01/25/2022 18:13 EDT Whitney Willis MD PATHOLOGY ORDERA BLES [facility] [address] [place] [address] documented in this encounter Visit Diagnoses Diagnosis Encounter for other general examination documented in this encounter Care Teams Environmental Inspector Relationship Specialty Start Date End Date Veronica Pro NP PCP - General 12/30/21 documented as of this encounter
--- OUTSIDE RECORDS SUMMARY | 2024-03-08 22:15 | XMS_ITS | Encounter Summary ---
Author Organization [facility] Address [address] [place] [address] Care Team Providers Care Taxi Servicer Name Role Phone Veronica Pro PUBLIC RELATIONS WRITER Primary Care Provider [phone] Encounter Details Date Type Department Care Team (Late st Contact Info) Description 02/24/2022 Lab Requisition [facility] Pathology & Laboratory Medicine - [facility] [address] [place] [address] Veronica Pro NP [address] [place] [address] Encounter for screening for malignant neoplasm of cervix Social History Tobacco Use Types Packs/Day Years Used Date Smoking Tobacco: Never Assessed Sex and Gender Information Value Date Recorded Sex Assigned at Not on file Gender Identity Not on file Sexual Orientation Not on file documented as of this encounter Plan of Treatment Scheduled Orders Name Type Priority Associated Diagnoses Orde r Schedule PAP TEST Pathology Today Encounter for screening for malignant neoplasm of cervix Ordered: 02/24/2022 documented as of this encounter Visit Diagnoses Diagnosis Encounter for screening for malignant neoplasm of cervix Screening for malignant neoplasm of the cervix documented in this encounter Care Teams Taxi Servicer Relationship Specialty Start Date End Date Veronica Pro NP PCP - General 12/30/21 documented as of this encounter
--- OUTSIDE RECORDS SUMMARY | 2024-03-08 22:15 | XMS_ITS | Encounter Summary ---
Author Organization [facility] Address [address] [place] [address] Care Team Providers Care Lottery Sales Clerk Name Role Phone Veronica Pro CORPORATE TRUST OFFICER Primary Care Provider Encounter Details Date Type Department Care Team (Late st Contact Info) Description 10/14/2023 Lab Requisition [facility] Pathology & Laboratory Medicine - [address] [phone] Outr Resulting Lab, Provider Social History Tobacco [...] Procedure Name Priority Date/Time Associated Diagnosis Comments LYME AB Routine 10/13/2023 10:10 EDT ANTI NUCLEAR AB (DIEGO), IFA Routine 10/13/2023 10:10 EDT documented in this encounter Results * LYME AB (10/13/2023 10:10 EDT) Lyme Ab Negative Negative 10/17/2023 11:01 EDT [facility] Blood VENOUS BLOOD / Unknown 10/13/2023 10:10 EDT 10/14/2023 17:03 EDT Provider Outr Resulting Lab IMMUNOLOGY A ND SEROLOGY ORDERABLES [facility] [address] [place] [address] * ANTI NUCLEAR AB (DIEGO), IFA (10/13/2023 10:10 EDT) DIEGO Interpretation Negative Negative 2023 15:59 EDT [facility] Comment:No titer performed, DIEGO Screen is negative. Blood VENOUS BLOOD / Unknown 10/13/2023 10:10 EDT 10/14/2023 17:03 EDT Narrative [facility] - 10/17/2023 15:59 EDT Results were obtained with the TempoIQVA NOVA Lite HEp-2 DIEGO Kit by indirect immunofluorescence. Provider Outr Resulting Lab IMMUNOLOGY A ND SEROLOGY ORDERABLES [facility] [address] [place], [place] [id number] documented in this encounter Visit Diagnoses Not on filedocumented in this encounter Care Teams Lottery Sales Clerk Relationship Specialty Start Date End Date Veronica Pro NP PCP - General 12/30/21 documented as of this encounter
--- OUTSIDE RECORDS SUMMARY | 2024-03-08 22:15 | XMS_ITS | Clinical Summary ---
Author Organization [facility] Address [address] [place] [address] Care Team Providers Care Exchange Floor Manager Name Role Phone Veronica Pro RACEBOOK WRITER Primary Care Provider Encounters Date Type Department Care Team Description 12/23/2023 Lab Requisition [facility] Pathology & Laboratory [facility] [address] [place] [address] Outr Resulting Lab, Provider 12/23/2023 Lab Requisition [facility] Pathology & Laboratory [address] [address] Outr Resulting Lab, Provider from Last 3 Months Social History Tobacco Use Types Packs/Day Years Used Date Smoking Tobacco: Never Assessed Sex and Gender Information Value Date Recorded Sex Assigned at Not on file Gender Identity Not on file Sexual Orientation Not on file Plan of Treatment Health Maintenance Due Date Last Done Comments Hepatitis C Screen 1980 Hepatitis B Vaccine (1 of 3 - 19+ 3-dose series) 07/23 COVID-19 Vaccine ( season) 2023 Procedures Procedure Name Priority Date/Time Associated Diagnosis Comments OVA/PARASITE EXAM Routine 12/22/2023 11: 30 EDT H. PYLORI ANTIGEN Routine 12/22/2023 11: 30 EDT from Last 3 Months Results * H. PYLORI ANTIGEN (12/22/2023 11:30 EDT) H. Pylori Negative Negative 12/27/2023 13:41 EDT [facility] Comment:Indicates the absenc e of H. pylori stool antigen, (or the level of antigen is below that which can be detected by the assay) Feces SPECIMEN FROM RECTUM / Unknown 12/22/2023 11:30 EDT 12/23/2023 17:54 EDT Narrative [facility] - 12/27/2023 13:41 EDT New Liaison XL testing method used as of 05/23/2023 Provider Outr Resulting Lab MICROBIOLOGY - GENERAL ORDERABLES Performing Organization Address [facility] Co de Phone Number [facility] [address] [place], [place] [address] * OVA/PARASITE EXAM (12/22/2023 11:30 EDT) Parasite No ova and parasites seen. 12/26/2023 11:43 EDT [facility] Feces SPECIMEN FROM RECTUM / Unknown 12/22/2023 11:30 EDT 12/23/2023 18:49 EDT Narrative [facility] - 12/26/2023 11:43 EDT (If Cryptosporidium, Cyclospora, or Microsporidium are suspected, specific tests must be requested.) Single negative specimen does not rule out the possibility of a parasitic infection. Provider Outr Resulting Lab MICROBIOLOGY - GENERAL ORDERABLES Performing Organization Address City/[facility] Co de Phone Number [facility] [address] [place] [phone] from Last 3 Months Care Teams Exchange Floor Manager Relationship Specialty Start Date End Date Veronica Pro NP PCP - General 12/30/21
--- OUTSIDE RECORDS SUMMARY | 2024-03-08 22:15 | XMS_ITS | Encounter Summary ---
Author Organization Health system Address [address] [place] [address] Care Team Providers Care Licensed Massage Practitioner Name Role Phone Veronica Pro UROLOGIST Primary Care Provider Encounter Details Date Type Department Care Team (Late st Contact Info) Description 02/24/2021 Lab Requisition [facility] Pathology & Laboratory Medicine - [address] [id number] Outr Resulting Lab, Provider Social History Tobacco [...] Associated Diagnosis Comments H. PYLORI ANTIGEN Routine 02/23/2021 15: 47 EDT documented in this encounter Results * H. PYLORI ANTIGEN (02/23/2021 15:47 EDT) H. Pylori Negative Negative 02/26/2021 15:54 EDT [facility] Feces SPECIMEN FROM RECTUM / Unknown 02/23/2021 15:47 EDT 02/24/2021 15:31 EDT Narrative [facility] - 02/26/2021 15:54 EDT Results were obtained with the Perceptis Stephenson HpSA Plus VENKAT. Provider Outr Resulting Lab MICROBIOLOGY - GENERAL ORDERABLES [facility] [address] [place] [address] documented in this encounter Visit Diagnoses Not on filedocumented in this encounter Care Teams Licensed Massage Practitioner Relationship Specialty Start Date End Date Veronica Pro NP PCP - General 12/30/21 documented as of this encounter
== END 2024-03-08 22:08 | disposition home or self-care (01) ==
LOC: NCHCN 22:07
PROVIDERS: PCP Nurse Practitioner Family; Visit Provider Physician Assistant
DX: R07.9 Chest pain, unspecified (principal); L65.9 Nonscarring hair loss, unspecified
CPT/HCPCS: 80053; 85027; 84443; 84484

== ENCOUNTER 2024-04-12 01:51 | Outpatient (CLI) | payer SELFPAY ==
--- NOTE | 2024-04-12 | ETT_ITS ---
APPROVED REPORT Exam: Exercise Treadmill Patient Location: Out-Patient Room/Bed: Stress Nurse: Damaris Brown RN Ordering Provider:MARGOTH MARTINEZ, Contact Number: [phone] BMI: 38.78 Baseline Rhythm: Sinus Rhythm Indications: Chest pain Medical History Medical History: liver steatosis, muscle pain Cardiac Medications: None Allergies: NKDA Cardiac Risk Factors: +Family history Previous Cardiac Procedures: None Pretest Chest Pain Characteristics: None Exercise History: Indeterminate Physical Disabilities: None Lung Sounds: LCTA Heart Sounds: Regular, S1/S2 Stress Test Details Test: Exercise stress testing was performed using a Jaspal protocol. Rest Stress HR Resting HR Supine: 77 bpm Max Heart Rate (APMHR): 176 bpm Resting HR Standin bpm Target HR (85% APMHR): 150 bpm Max HR Achieved: 158 bpm % of APMHR: 90 Recovery HR: 94 bpm HR response to stress: Normal HR response to stress BP Resting BP Supine: 140/88 mmHg Resting BP Standin/84 mmHg Max BP: 202/68 mmHg Recovery BP: 146/78 mmHg BP response to stress: Normal blood pressure response to stress. ECG Resting ECG: Sinus Rhythm Ectopy: None Stress ECG: Sinus Tachycardia ST Change: No significant ST segment changes noted Arrhythmia: Rare PVC Recovery ECG: Sinus Rhythm Recovery ST Change: No significant ST segment changes noted Recovery Arrhythmia: Rare PVC Clinical Reason for Termination: Fatigue, Target HR Achieved Stress Symptoms: mild dizziness Exercise duration: 8 min30 sec Highest Stage Reached: Stage 3: 3.4 mph at 14% grade. Exercise capacity: 10.16 METs Angina Score: None Childs Treadmill Score: 8.1 Rate Pressure Product: [id number] Stress ECG Conclusion 1. Resting electrocardiogram was normal 2. Patient exercised on the Jaspal protocol and completed a workload of 10.16 METS 3. Normal heart rate and blood pressure response to exercise. The patient achieved 90% of predicted heart rate for age 4. There was no electrocardiographic evidence of myocardial ischemia 5. There were no significant dysrhythmias Childs Treadmill Score is 8.1 which is Low risk. Stress Test Summary STAGE Time (mins) Speed (mph) Grade (%) HR BP SpO2 SYMPTOMS METS Supine 77 140/88 97% Standing 74 136/84 1 3 1.7 10 113 4.5 2 6 2.5 12 133 7 3 9 3.4 14 154 10 1 min recovery 121 202/68 3 min recovery 103 178/62 92% 6 min recovery 99 146/78 9 min recovery 95 Patient presented accompanied by her and [facility] staff member with aerial photograph interpreter services maria teresas [facility] [place] [facility] via [employer] as patient is chinese speaking only. Utilizing aerial photograph interpreter services the test was explained and consent was signed. Patient tolerated test well with no adverse signs or symptoms. Pat ient left ambulatory in no apparent distress. [employer] aerial photograph interpreter was utilized for the entirety of test.
== END 2024-04-12 02:11 ==
PROVIDERS: PCP Nurse Practitioner Family; Visit Provider Physician Assistant
DX: R07.9 Chest pain, unspecified (principal)
CPT/HCPCS: 93017

== ENCOUNTER 2024-06-21 17:29 | Emergency (ER) | payer SELFPAY ==
[2024-06-21 17:41] VITALS: BP 146/92; PULSE 62; RESP 14; TEMP 36.7; O2SAT 98
[2024-06-21 17:55] VITALS: BP 151/83; PULSE 71; RESP 16; TEMP 37.2; O2SAT 97
--- NOTE | 2024-06-21 18:01 | W.ED.GENAD ---
Discharge Plan Disposition Patient Disposition: Home Condition: Stable Discharge Details Clinical Impression: Abdominal pain of unknown cause Primary Care Provider: Veronica Pro ED Provider: Todd Medel Home Meds and New Rx's Prescriptions: No Action pantoprazole 40 mg tablet,delayed release (DR/EC) 40 mg PO DAILY Discharge Instructions Instructions: Ketorolac (Systemic), Abdominal Pain, Adult ED Additional Instructions: Lo atendieron en el departamento de emergencias por edmondson dolor abdominal bajo. Se le realizaron estudios de laboratorio los cuales no arrojaron signos de infecci?n grave, ni sepsis, ni elevaci?n de enzimas renales, ni signos de pancreatitis, edmondson tomograf?a computarizada muestra un n?dulo en la gl?ndula suprarrenal que debe ser monitoreado con estudios ambulatorios, muestra que tiene esteatosis hep?hill cr?charli. , adan estudios de laboratorio muestran eder elevaci?n leve de eder de adan enzimas hep?alfonso llamada ALT, que no llega a un nivel peligroso. Edmondson orina no muestra signos de infecci?n. No parece darnell ninguna anomal?a aguda peligrosa rebeca causa de edmondson dolor abdominal. Envi? eder receta de ketorolaco a la farmacia [place] en [place]. Est? atento a fiebre, v?mitos intratables, empeoramiento del dolor abdominal, estre?imiento completo sin expulsi?n de gases y cualquier otro problema emergente. [place] 1000 mg de Tylenol cada 6 horas, a mitad de asad entre dosis de Tylenol, tome eder de las pastillas de ketorolaco recetadas, no tome otros JOSH rebeca Aleve e ibuprofeno con ketorolaco. Referrals: Veronica Pro [Primary Care Provider] - HPI General Date/Time Provider Initiated Documentation: 06/21/24 17:53. HPI Narrative: 43 year-old female, [place]-speaking, presents to ED today by POV/ambulating with a chief complaint of lower abdominal pain, denies fever, denies bowel or urinary changes, denies nausea or vomiting but is having chills and sweats, had a normal bowel movement today with onset for the past 1 week but worse over the past 3 days. Quality described as generalized abdominal cramping, no radiation to intractable nausea or vomiting, black or bloody stools, pelvic pain or discharge, intractable nausea or vomiting, overt fever. Severity is described as moderate. Palliating factors include nothing specific attempted. Provoking factors include nothing specific. Patient endorses a known umbilical hernia in her history, denies other major abdominal surgeries. Patient not anticoagulated. Related Data Home Medications ?Medication ?Instructions ?Recorded ?Confirmed pantoprazole 40 mg tablet,delayed 40 mg PO DAILY 06/21/24 06/21/24 release Allergies Allergy/AdvReac Type Severity Reaction Status Date / Time No Known Allergies Allergy Verified 06/21/24 17:49 General Stated Complaint: Abd Prob VIELKA: 3 Review of Systems All systems reviewed & are unremarkable except as noted in HPI and below Exam Narrative Exam Narrative: GENERAL APPEARANCE: Well-nourished, non-toxic, awake and alert, atraumatic, no acute distress. SKIN: Warm, pink, dry, intact, without rashes/lesions/ulcerations. HEAD: Normocephalic, atraumatic, normal hair distribution for gender/age. EYES: Normal conjunctiva, no exudates on lids/lashes. ENT: Nares patent, no circumoral cyanosis, no facial swelling NECK: Supple, trachea midline, painless cervical ROM. LUNGS/CHEST: Lungs CTA bilaterally-no rhonchi/rales/wheezes diffusely, non-labored respirations, normal A/P diameter, symmetrical expansion, no chest wall deformity HEART (CV/PV): Regular rate and rhythm without murmur, no peripheral edema, no JVD. ABDOMEN: Normoactive bowel sounds, soft, non-distended, no guarding, tenderness in the entire lower abdomen without rebound tenderness, no Jimenez sign, no negative CVA tenderness to percussion bilaterally. MSK: Normal ROM, no swelling/deformity to bilateral UEs or LEs, moving all extremities without weakness, no cyanosis, spine midline without tenderness, normal curvature. NEURO: Mental Status AAOx4 - alert to person, place, time, events No facial droop, no forehead involvement. Motor: No focal weakness - strength 5/5 in bilateral UEs and LEs, proximal and distal, symmetric. Sensory: sensation intact to light touch globally. Gait normal: patient ambulated without ataxia into ED room. PSYCH: euthymic, cooperative, pleasant, appropriate speech Course Vital Signs Vital signs: Vital Signs Temperature 36.7 C 06/21/24 17:41 Pulse 62 06/21/24 17:41 Respiratory Rate 14 06/21/24 17:41 Blood Pressure 146/92 H 06/21/24 17:41 Pulse Oximetry 98 06/21/24 17:41 Temperature 37.2 C 06/21/24 17:55 Temperature Source Temporal Artery Scan 06/21/24 17:55 Pulse 71 06/21/24 17:55 Respiratory Rate 16 06/21/24 17:55 Respiratory Effort Normal 06/21/24 17:55 Blood Pressure 151/83 H 06/21/24 17:55 Blood Pressure Position Sitting 06/21/24 17:55 Pulse Oximetry 97 06/21/24 17:55 Oxygen Delivery Method Room Air 06/21/24 17:55 Oxygen Flow Rate 0 06/21/24 17:41 Pain Level 8 06/21/24 17:41 Medical Decision Making This dictation utilizes [id number] dictation software and may contain unedited grammatical errors. 43 year-old female, [place]-speaking, presents to ED today by POV/ambulating with a chief complaint of lower abdominal pain, denies fever, denies bowel or urinary changes, denies nausea or vomiting but is having chills and sweats, had a normal bowel movement today with onset for the past 1 week but worse over the past 3 days. Quality described as generalized abdominal cramping, no radiation to intractable nausea or vomiting, black or bloody stools, pelvic pain or discharge, intractable nausea or vomiting, overt fever. Severity is described as moderate. Palliating factors include nothing specific attempted. Provoking factors include nothing specific. Patient endorses a known umbilical hernia in her history, denies other major abdominal surgeries. Patients' medical history: History of ventral hernia repair, known gastritis history. Family and social history: Denies significant EtOH use, lives in [place]. Pertinent exam findings / vital signs include lower abdominal pain without rebound tenderness, no Rovsing's, negative Jimenez sign, no CVA tenderness to percussion bilaterally, benign cardiopulmonary exam, neuro intact, nontoxic vitals. Differential / pathologies of concern include incarcerated hernia, diverticulitis, appendicitis, gastroenteritis, endometriosis, gastritis, less likely perforated viscus or mesenteric ischemia. Diagnostic studies of: -CBC, CMP, lactate, magnesium, lipase, UA, CT abdomen pelvis w/ contrast. -CBC shows no leukocytosis, mildly elevated lymphocytes possible viral gastroenteritis -CMP has no actionable abnormality -Lactate negative -UA benign -Lipase negative -Magnesium within normal limits -CT shows hepatic steatosis which aligns with mild elevation of ALT, constipation or right adrenal nodule finding through hearing aid mechanic service, no symptoms of vaginitis, shows known umbilical hernia containing no bowel Interventions of: -Rx for Toradol. ED Course/Assessment/Plan: 43-year-old [place]-speaking female presents with lower abdominal pain, there is no acute findings on laboratory studies or CT, she has mild lymphocytosis, possible viral gastroenteritis, counseled the patient on nonemergent findings in the abdomen and prescribed some Toradol to see if it could help with her abdominal pain and cramping, she refused nausea medicine, counseled her on strict return criteria for any fever, intractable nausea or vomiting, severe worsening of abdominal pain, complete constipation or other emergent concerns. Findings not consistent with SBO, incarcerated hernia, diverticulitis, perforated viscus, appendicitis, diverticulitis, other emergent bowel pathology. Disposition of abdominal pain of unknown cause. Patient verbalized understanding of the plan and return to ED criteria and engaged in shared decision making. Medical Records Medical records reviewed: Yes I reviewed the patient's medical records. Imaging Data Radiologic Study: Attestation: I personally reviewed and interpreted this imaging study as follows: Imaging: CT Scan Radiologist's impression: Exam: CT Abdomen And Pelvis With Contrast Exam date and time: 06/21/2024 7:07 PM Age: 43 years old Clinical indication: Pain; Other: Llq/luq tenderness TECHNIQUE: Imaging protocol: Computed tomography of the abdomen and pelvis with contrast. Contrast material: OMNIPAQUE 350; Contrast volume: 85 ml; Contrast route: INTRAVENOUS (IV); COMPARISON: No relevant prior studies available. FINDINGS: Lungs: The lung bases are clear of acute infiltrate. There is a 4 mm nodule along the lateral posterior right breast which may represent an intramammary lymph node. Heart: The heart is unremarkable. No coronary artery calcification. No pericardial effusion. Liver: The liver is overall enlarged. There is diffuse steatosis without focal lesion. Gallbladder and biliary ducts: No calcified gallstones or biliary dilatation. Pancreas: The pancreas shows no mass or inflammatory process. Spleen: The spleen is not enlarged. Adrenal glands: There is a low-density nodule of the right adrenal gland that measures 16 x 22. This has a Hounsfield density measurement of 29 on a contrast examination. Kidneys and ureters: The kidneys are unobstructed. There are no calculi. Stomach and bowel: There is no gastric outlet obstruction. There is no small bowel obstruction. There are scattered diverticula of the sigmoid colon but no diverticulitis. Appendix: No findings for appendicitis. Intraperitoneal space: No free air or free fluid. Vasculature: The abdominal aorta is of normal caliber. No aneurysm. No stenoses at the origins of the celiac or superior mesenteric artery. Lymph nodes: No abnormal para-aortic adenopathy. Urinary bladder: The bladder shows no filling defects. Reproductive: The uterine contour is unremarkable. There is a small amount of air within the vagina, this is nonspecific. Bones/joints: No acute bony changes of the lumbar spine or pelvis. Soft tissues: No abnormal soft tissue lesions of the abdominal wall. There is a small subumbilical hernia. IMPRESSION: 1. Diffuse hepatic steatosis without focal lesion. 2. Right adrenal nodule likely representing an adenoma. Non-emergent adrenal CT is recommended. (Reference: Hugo) References: uHgo BARNEY, et al. Management of Incidental Adrenal Masses: A White Paper of the ACR Incidental Findings Committee. J Am Carla Radiol. 2017;14(8):9307-2942. 3. Scattered diverticula of the sigmoid colon without diverticulitis. 4. Small amount of air within the vagina, nonspecific but clinical correlation is still needed to rule out vaginitis. 5. No free air or free fluid. Dictated and Authenticated by: Jamie Reid MD. Lab Data Lab results reviewed: Yes I reviewed the patient's lab results. Labs: Laboratory Tests Range/Units 06/21/24 06/21/24 18:20 18:37 WBC (4.4-10.8) 10^3/uL 9.28 RBC (3.93-5.22) 10^6/uL 4.54 Hgb (11.2-15.7) g/dL 14.0 Hct (36.0-46.0) % 42.4 MCV (80-95) fL 93 MCH (27.0-33.0) pg 30.8 MCHC (32.0-36.0) % 33.0 RDW (11.7-14.6) % 13.0 Plt Count (130-400) 10^3/uL 272 MPV (8.0-11.0) fL 9.5 Immature Gran % % 0.4 Neutrophils % % 45.4 Lymphocytes % % 43.8 Monocytes % % 6.0 Eosinophils % % 3.9 Basophils % % 0.5 Nucleated RBC % (0.0-0.3) % 0.0 Absolute Neutrophils (1.2-6.7) 10^3/uL 4.21 Absolute Lymphocytes (1.2-3.4) 10^3/uL 4.06 H Absolute Monocytes (0.1-0.8) 10^3/uL 0.56 Absolute Eosinophils (0.0-0.7) 10^3/uL 0.36 Absolute Basophils (0.0-0.2) 10^3/uL 0.05 VBG Lactate (0.6-1.4) mmol/L 0.6 Sodium (136-145) mmol/L 143 Potassium (3.5-5.1) mmol/L 3.7 Chloride (98-107) mmol/L 108 H Carbon Dioxide (21.0-32.0) mmol/L 28.6 Anion Gap (3-11) mmol/L 6.4 BUN (7-18) mg/dL 19 H Creatinine (0.55-1.02) mg/dL 0.7 Est GFR (CKD-EPI 2020) (mL/min/1.73m2) 109.30 Glucose (74-106) mg/dL 107 H Calcium (8.5-10.1) mg/dL 9.0 Magnesium (1.8-2.4) mg/dL 2.0 Total Bilirubin (0.2-1.0) mg/dL 0.35 AST (15-37) U/L 37 ALT (14-59) U/L 85 H Alkaline Phosphatase (46-116) U/L 106 Total Protein (6.4-8.2) g/dL 7.7 Albumin (3.4-5.0) g/dL 3.8 Lipase (<78) U/L 55 Urine Color (Yellow) Yellow Urine Clarity (Clear) Clear Urine pH (5-8) 5.5 Ur Specific Lowber (1.005-1.025) 1.025 Urine Protein (Neg-Trace) mg/dL Negative Urine Ketones (Negative) mg/dL Negative Urine Blood (Negative) Moderate H Urine Nitrite (Negative) Negative Urine Bilirubin (Negative) Negative Urine Urobilinogen (Up to 0.2) mg/dL 0.2 Ur Leukocyte Esterase (Negative) Trace H Urine RBC (0-2) HPF 5-10 H Urine WBC (0-5) HPF 0-2 Ur Epithelial Cells (Negative) HPF Many Urine Crystals (Negative) HPF Negative Urine Bacteria (Negative) HPF Negative Urine Mucus (Negative) Negative Urine Other (Negative) Rare Transitional Ur Culture Indicated? No Urine Glucose (Negative) mg/dL Negative Quality:SDOH Health Related Social Needs: No Data to Display PFSH All Active Problems (Updated 06/21/24 @ 21:15 by SOHEILA Olivo) Abdominal pain of unknown cause (Acute) Abdominal pain (Acute) Epigastric pain (Acute) Medical History Cervical spine pain (~03/2020) Cervical spine sprain Chest pain Closed left clavicular fracture (~03/2020) Surgical History History of colonoscopy (~12/2021) History of esophagogastroduodenoscopy (EGD) (~12/2021) History of ventral hernia repair Previous section x2 Social History Smoking/Tobacco Use Status: Never Smoking risk assessment performed?: Yes Alcohol Intake: never Substance use type: does not use Household members: spouse and children Housing: house Number of Children: 3 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
[2024-06-21 18:44] LABS: Abs Immature Grans 0.04 10^3/uL (0.0-0.06); Absolute Basophil Count 0.05 10^3/uL (0.0-0.2); Absolute Eosinophil Count 0.36 10^3/uL (0.0-0.7); Absolute Lymphocyte Count 4.06 10^3/uL (1.2-3.4); Absolute Monocyte Count 0.56 10^3/uL (0.1-0.8); Absolute Neutrophil Count 4.21 10^3/uL (1.2-6.7); Basophils % 0.5 %; Eosinophils % 3.9 %; HCT 42.4 % (36.0-46.0); Immature Grans % 0.4 %; Lactate 0.6 mmol/L (0.6-1.4); Lymphocytes % 43.8 %; MCH 30.8 pg (27.0-33.0); MCV 93 fL (80-95); MPV 9.5 fL (8.0-11.0); Neutrophils % 45.4 %; Platelet Count 272 10^3/uL (130-400); RBC 4.54 10^6/uL (3.93-5.22); RDW-SD 44.6 fL; WBC 9.28 10^3/uL (4.4-10.8)
--- NOTE | 2024-06-21 18:45 | DI.CT_ITS ---
Exam(s) CT ABDOMEN PELVIS W EXAM: CT ABDOMEN PELVIS W CLINICAL HISTORY: LLQ/LUQ tenderness. TECHNIQUE: Imaging Protocol: Axial computed tomography images with coronal and sagittal reformatted images were created and reviewed CONTRAST MATERIAL: Intravenous: Omnipaque-350 100cc Oral: None COMPARISON: No exams were available for comparison FINDINGS: VISUALIZED LUNG BASES: No nodules nor pleural effusions evident. ABDOMEN: There is no ascites. LIVER: Liver size is slightly prominent. There are no discrete focal hepatic lesions nor intrahepati c ducts. GALLBLADDER/BILIARY: No obvious gallbladder pathology. CBD is not dilated. PANCREAS: No evidence of pancreatic mass nor dilatation of the pancreatic duct. SPLEEN: Spleen is not enlarged. No obvious intrasplenic lesions. Splenic and portal veins are paten t. ADRENALS: Left adrenal gland unremarkable. There is a abnormal nodule in the right adrenal gland whi ch measures 2.7 cm AP by 1.7 cm wide by 2.3 cm craniocaudal. KIDNEYS:No cysts evident. No solid renal masses. No calculi nor hydronephrosis.. ABDOMINAL AORTA: Abdominal aorta is not enlarged. LYMPH NODES:There is no retroperitoneal nor paraaortic adenopathy. ABDOMINAL WALL: No evidence of significant anterior abdominal wall nor inguinal hernia. GI: There is no evidence of bowel obstruction, free air, nor abscess. PELVIS: GI: No evidence of appendicitis.There is sigmoid diverticuli without evidence of acute diverticulitis . LYMPH NODES: There is no intrapelvic nor inguinal adenopathy. REPRODUCTIVE: Uterus is retroverted. Normal size. However, there are dilated veins on both sides of the uterus. These drain into gonadal veins. Consistent with element of pelvic congestion syndrome. The gonadal veins are not thrombosed. There are no abnormal adnexal masses. No free fluid in the pelvis. URINARY BLADDER: No calculi nor obvious masses evident OSSEOUS: No fractures. Benign appearing sclerotic bone island is noted in the right femoral head. IMPRESSION: 1. Mild hepatomegaly. No focal hepatic lesions. 2. Right adrenal nodule measuring 2.7 x 1.7 x 2.3 cm. May represent an adenoma. Follow-up adrenal p rotocol CT or MRI recommended open (reference Kyle Kingston; management of incidental adrenal masses thierry rnal [employer] 2007 14 (8) 3. There is pelvic congestion syndrome noted with dilated bilateral periuterine veins evident. Corre lation with clinical findings recommended. 4. There are sigmoid diverticuli but no evidence of acute diverticulitis. No evidence of appendiciti s. RADIATION DOSE DELIVERED: 621.62mGy.cm Total DLP DATA REPOSITORY: All CT scans at this facility are submitted to the National Radiology Data Registry (NRDR) Dose Index Registry (DIR) with the [employer] (ACR). RADIATION OPTIMIZATION: All CT scans at this facility use at least one of these dose optimization te chniques: automated exposure control; mA and/or kV adjustment per patient size (includes targeted exa ms where dose is matched to clinical indication); or iterative reconstruction.
[2024-06-21 18:48] VITALS: BP 119/61; PULSE 58; PULSE 61; RESP 17; O2SAT 95
[2024-06-21 18:48] LABS: Bilirubin Negative (Negative); Blood Moderate (Negative); Clarity Clear (Clear); Glucose Negative (Negative); Ketones Negative (Negative); Leukocyte Esterase Trace (Negative); Nitrite Negative (Negative); Specific Gravity 1.025 (1.005-1.025); Urobilinogen 0.2 mg/dL (Up to 0.2); pH 5.5 (5-8)
[2024-06-21] MEDS: Ketorolac 15 MG/ML VIAL IVP (18:54)
[2024-06-21] MEDS: ACETAMINOPHEN 1,000 MG/100 ML BAG 400 MG IVPB (18:54)
[2024-06-21 18:55] LABS: Bacteria Negative HPF (Negative); C & S Indicated? No; Crystals Negative HPF (Negative); Epithelial Cells Many HPF (Negative); Mucus Negative (Negative); Other Cells Rare Transitional (Negative); WBC 0-2 HPF (0-5)
[2024-06-21 19:01] VITALS: BP 123/57; PULSE 61; PULSE 62; RESP 16; O2SAT 96
[2024-06-21 19:06] LABS: ALT 85 U/L (14-59); AST 37 U/L (15-37); Albumin 3.8 g/dL (3.4-5.0); Alkaline Phosphatase 106 U/L (46-116); Anion Gap 6.4 mmol/L (3-11); BUN 19 mg/dL (7-18); Bilirubin, Total 0.35 mg/dL (0.2-1.0); CO2 28.6 mmol/L (21.0-32.0); CREATININE 0.7 mg/dL (0.55-1.02); Chloride 108 mmol/L (98-107); Glucose 107 mg/dL (74-106); Lipase 55 U/L (<78); Potassium 3.7 mmol/L (3.5-5.1); Sodium 143 mmol/L (136-145); Total Protein 7.7 g/dL (6.4-8.2)
[2024-06-21] MEDS: Normal Saline - Diluent 50 ML VIAL IJ (19:11)
[2024-06-21] MEDS: Omnipaque 350 MG/ML 100 ML BTL IJ (19:12)
--- OUTSIDE RECORDS SUMMARY | 2024-06-21 20:35 | XMS_ITS | Data Portability ---
Author Organization [place] - [facility], [facility] Address [address] [place] [address] Assessment Encounter Date Assessment Date Assessment LastModified by Organization Details LastModified Time 10/13/2023 10/13/2023 The total time devoted to today's encounter, including both the nuyv-vw-afbg time with the patient and/or family/caregive r and hqk-byao-zg-fac e time I personally spent is 45 [...] mg once daily. Not available 01/19/2024 12:37:56 03/08/2024 03/08/2024 The patient presents with dizziness and chest pain. The dizziness may be caused by benign paroxysmal positional vertigo, but it could also be due to insufficient sleep and dehydration. The chest pain is concerning and requires further evaluation, including an EKG and possibly a stress test. [id number] Not available 03/08/2024 15:03:23 Plan of Treatment Reminders Order Date Submit Date Provider Last Modified By Organization Details Last Modified Time Details Appointments None recorded. Lab TSH, serum or plasma 2023 024 [facility] (Registration ), [address] [place] [address] [place], [address], 4 10:20:57 CMP, serum or plasma 2023 024 [facility] (Registration ), [address] [place] [address] [place], [address], 4 10:20:55 CBC w/ diff 2023 024 [facility] (Registration ), [address] [place] [address] [place], [address], 4 10:20:57 ESR (erythrocy te sedimentat ion rate), blood 2023 024 [facility] (Registration ), [address] [place] [address] [place], [address], 4 10:20:57 tick-borne disease panel [email or web address] ([facility] ), [address] [place] [address] [place], [address], 4 08:55:56 DIEGO (antinucle ar antibodies ) screen, serum 2023 0[email or web address] (Registration ), [address] [place] [address] [place], [address], 4 08:56:30 H pylori Ag, stool 2023 024 [facility] (Registration ), [address] [place] [address] [place], [address], 4 14:45:19 O&P (ova & parasites) , stool 2023 024 [email or web address] [facility] (Registration ), [address] [place] [address] [place], [address], 4 07:30:11 CMP, serum or plasma 2023 024 [facility] (Registration ), [address] [place] [address] [place], [address], 4 19:30:45 TSH, serum, reflex free T4 2023 024 [email or web address] [facility] (Registration ), [address] [place] [address] [place], [address], 4 09:52:03 CBC 2023 024 [facility] (Registration ), [address] [place] [address] [place], [address], 4 19:07:41 troponin I, serum or plasma 2023 024 [facility] (Registration ), [address] [place] [address] [place], [address], 4 19:30:46 Referral None recorded. Procedures None recorded. Surgeries None recorded. Imaging electrocar diogram [email or web address] [place] [address] [facility], [address] [facility], [address], [place], [address], 4 16:04:53 exercise stress test - treadmill stress test, pt east timorese speaking, reach out to [facility] [phone] 2023 024 [facility], [address] [place] [address] [place], [address], 4 09:55:23 Medication Orders pantoprazo le 40 mg tablet,del ayed release 2023 024 [facility], [address] [facility], [address], [place], [address], 4 11:39:13 pantoprazo le 40 mg tablet,del ayed release 2023 024 [facility], [address] [facility], [address], [place], [address], 4 10:39:46 pantoprazo le 40 mg tablet,del ayed release 2023 024 [facility], [address] [facility], [address], [place], [address], 14:04:50 Patient TargetsNo targets recorded. Patient Instructions Encounter Date Encounter Id Patient Instructions Last Modified By Organization Details Last Modified Time 10/13/2023 [id number] I would like to see you back in the office in one week to go over your lab results. Me gustar??a verlo nuevamente en la oficina en eder semana para repasar los resultados de [facility]. Not available 10/13/2023 10:04:36 12/22/2023 [id number] you have mild fa tty liver disease. it is important to increase [...] 1 cucharada eder vez al d??a con edmondson jugo anita Hay muchos cambios en el [...] o inquietud. Not available 12/22/2023 11:07:08 01/19/2024 [id number] continue on the pantoprazole 40mg 1 capsule [...] No siento nada en el exterior en examen. Not available 01/19/2024 10:41:34 03/08/2024 [id number] your pap smear w as normal in January 2022. due to history of abnormal pap 4 years ago it may be worth having it done again, let me know if you change your mind. continue with the pantoprazole 40mg 1 capsule once daily on empty stomach 30 minutes before eating with full glass of water. I sent in refills to [facility] in [place] Your EKG (electrical tracing of your heart) was normal. We did blood work today to check your blood counts, liver, kidneys, electrolytes, thyroid and heart marker to see if this would explain your chest pain I am sending an order for a stress test to [facility] in [place] to check for blockages of your heart I want you to take aspirin 81mg 2 tablets once daily with food Please go to the ER if you have chest pains, fast heart rate/skipped beats, dizziness, trouble breathing, vomiting, sweating and pain into your neck and/or arm I want you to make another appointment with me in 1 month but please reach out sooner if needed edmondson prueba de Papanicolaou fue normal en 2021. Debido a un historial de Papanicolaou anormal hace 4 a??os, puede que valga la candelaria hac??rsela nuevamente, av??seme si cambia de opini??n Contin??e con pantoprazol 40 mg 1 c??psula eder vez al d??a con el est??yasmany vac??o 30 minutos antes de comer con un vaso lleno de agua. Envi?? recargas a [facility] en [place]. Edmondson electrocardiograma (rastreo el??ctrico de edmondson coraz??n) fue normal. Hicimos an??lisis de roslyn hoy para verificar adan recuentos sangu??neos, h??gado, ri??ones, electrolitos, tiroides y marcadores card??acos para lian si esto explicar??a edmondson dolor en el pecho. Estoy enviando eder orden para eder prueba de esfuerzo al [facility] en [place] para detectar bloqueos en edmondson coraz??n. Quiero que tomes 2 tabletas de aspirina de 81 mg eder vez al d??a con la comida. Vaya a la neymar de emergencias si tiene nga en el pecho, frecuencia card??arcadio r??pida/latidos saltados, mareos, dificultad para respirar, v??mitos, sudoraci??n y dolor en el ivette y/o el brazo. Quiero que programes otra mary conmigo en 1 mes, joann comun??quese antes si es necesario. Not available 03/08/2024 14:54:33 05/03/2024 [id number] continue with pantoprazole daily continue with naps in the afternoon Call with any questions or concerns continuar con pantoprazol diariamente Continuar con siestas por la tarde. Llame con cualquier pregunta o inquietud. Not available 05/03/2024 11:15:49 Reason for Referral None Reported. Results Created Date Observation Date Name Description Value Unit Range Abnormal Flag Note LastModifiedBy Organization Detail LastModifiedTime 10/13/19 24 10/13/2023 COMPL ETE BLOOD COUNT W/DIF F WBC 10.03 10_3/ uL 4.4-10 .8 normal Not Available [facility] (Registration ) [address] [place] [address] , [place], [address], 10/13/2023 19:11:43 10/13/19 24 10/13/2023 COMPL ETE BLOOD COUNT W/DIF F RBC 4.72 10_6/ uL 3.93-5 .22 normal Not Available [facility] (Registration ) [address] [place] [address] [place], [address], 10/13/2023 19:11:43 10/13/19 24 10/13/2023 COMPL ETE BLOOD COUNT W/DIF F HGB 14.4 g/dL 11.2-1 5.7 normal Not Available [facility] (Registration ) [address] [place] [address] [place], [address], 10/13/2023 19:11:43 10/13/19 24 10/13/2023 COMPL ETE BLOOD COUNT W/DIF F HCT 43.8 % 36.0-4 6.0 normal Not Available [facility] (Registration ) [address] [place] [address] [place], [address], 10/13/2023 19:11:43 10/13/19 24 10/13/2023 COMPL ETE BLOOD COUNT W/DIF F MCV 93 fL 80-95 normal Not Available [facility] (Registration ) [address] [place] [address] [place], [address], 10/13/2023 19:11:43 10/13/19 24 10/13/2023 COMPL ETE BLOOD COUNT W/DIF F MCH 30.5 pg 27.0-3 3.0 normal Not Available [facility] (Registration ) [address] [place] [address] [place], [address], 10/13/2023 19:11:43 10/13/19 24 10/13/2023 COMPL ETE BLOOD COUNT W/DIF F MCHC 32.9 % 32.0-3 6.0 normal Not Available [facility] (Registration ) [address] [place] [address] [place], [address], 10/13/2023 19:11:43 10/13/19 24 10/13/2023 COMPL ETE BLOOD COUNT W/DIF F RDW 12.7 % 11.7-1 4.6 normal Not Available [facility] (Registration ) [address] [place] [address] [place], [address], 10/13/2023 19:11:43 10/13/19 24 10/13/2023 COMPL ETE BLOOD COUNT W/DIF F platelet count 265 10_3/ uL 130-40 0 normal Not Available [facility] (Registration ) [address] [place] [address] [place], [address], 10/13/2023 19:11:43 10/13/19 24 10/13/2023 COMPL ETE BLOOD COUNT W/DIF F MPV 10.9 fL 8.0-11 .0 normal Not Available [facility] (Registration ) [address] [place] [address] [place], [address], 10/13/2023 19:11:43 10/13/19 24 10/13/2023 COMPL ETE BLOOD COUNT W/DIF F neutrophils % 48.4 Not Available [facility] (Registration ) [address] [place] [address] [place], [address], 10/13/2023 19:11:43 10/13/19 24 10/13/2023 COMPL ETE BLOOD COUNT W/DIF F lymphocytes % 41.9 Not Available [facility] (Registration ) [address] [place] [address] [place], [address], 10/13/2023 19:11:43 10/13/19 24 10/13/2023 COMPL ETE BLOOD COUNT W/DIF F monocytes % 5.5 Not Available [facility] (Registration ) [address] [place] [address] [place], [address], 10/13/2023 19:11:43 10/13/19 24 10/13/2023 COMPL ETE BLOOD COUNT W/DIF F eosinophils % 3.5 Not Available [facility] (Registration ) [address] [place] [address] [place], [address], 10/13/2023 19:11:43 10/13/19 24 10/13/2023 COMPL ETE BLOOD COUNT W/DIF F basophils % 0.5 Not Available [facility] (Registration ) [address] [place] [address] [place], [address], 10/13/2023 19:11:43 10/13/19 24 10/13/2023 COMPL ETE BLOOD COUNT W/DIF F immature grans % 0.2 Not Available [facility] (Registration ) [address] [place] [address] [place], [address], 10/13/2023 19:11:43 10/13/19 24 10/13/2023 COMPL ETE BLOOD COUNT W/DIF F nucleated RBC 0.0 % 0.0-0. 3 normal Not Available [facility] (Registration ) [address] [place] [address] [place], [address], 10/13/2023 19:11:43 10/13/19 24 10/13/2023 COMPL ETE BLOOD COUNT W/DIF F absolute neutrophil count 4.86 10_3/ uL 1.2-6. 7 normal Not Available [facility] (Registration ) [address] [place] [address] [place], [address], 10/13/2023 19:11:43 10/13/19 24 10/13/2023 COMPL ETE BLOOD COUNT W/DIF F absolute lymphocyte count 4.20 10_3/ uL 1.2-3. 4 high Not Available [facility] (Registration ) [address] [place] [address] [place], [address], 10/13/2023 19:11:43 10/13/19 24 10/13/2023 COMPL ETE BLOOD COUNT W/DIF F absolute monocyte count 0.55 10_3/ uL 0.1-0. 8 normal Not Available [facility] (Registration ) [address] [place] [address] [place], [address], 10/13/2023 19:11:43 10/13/19 24 10/13/2023 COMPL ETE BLOOD COUNT W/DIF F absolute eosinophil count 0.35 10_3/ uL 0.0-0. 7 normal Not Available [facility] (Registration ) [address] [place] [address] [place], [address], 10/13/2023 19:11:43 10/13/19 24 10/13/2023 COMPL ETE BLOOD COUNT W/DIF F absolute basophil count 0.05 10_3/ uL 0.0-0. 2 normal Not Available [facility] (Registration ) [address] [place] [address] [place], [address], 10/13/2023 19:11:43 10/13/19 24 10/13/2023 ESR ESR 11 mm/HR 0-20 normal Not Available [facility] (Registration ) [address] [place] [address] [place], [address], 10/13/2023 19:18:42 10/13/19 24 10/13/2023 COMPR EHENS DERIAN METAB OLIC PANEL calcium 9.5 mg/dL 8.5-10 .1 normal Not Available [address] [place], [address] 10/13/2023 19:34:46 10/13/19 24 10/13/2023 COMPR EHENS DERIAN METAB OLIC PANEL glucose 106 mg/dL 74-106 normal Not Available [facility] [address] [place], [address] 10/13/2023 19:34:46 10/13/19 24 10/13/2023 COMPR EHENS DERIAN METAB OLIC PANEL BUN 15 mg/dL 7-18 normal Not Available [facility] [address] [place], [address] 10/13/2023 19:34:46 10/13/19 24 10/13/2023 COMPR EHENS DERIAN METAB OLIC PANEL creatinine 0.6 mg/dL 0.55-1 .02 normal Not Available [address] [place], [address] 10/13/2023 19:34:46 10/13/19 24 10/13/2023 COMPR EHENS DERIAN METAB OLIC PANEL estimated GFR 113.44 mL/min /1.73m 2 The eGFR is calcu lated from a serum creat inine using the CKD-E PI 2020 equat ion. Other varia bles requi red for the equat ion are gende r and age; this equat ion does not inclu de a race coeff icien t. This equat ion has simil ar overa ll perfo rmanc e to previ ous equat ions excep t value s may diffe r, in parti cular , in patie nts with highe r value s of eGFR and young er-ag ed adult s. Not Available [address] [place], [address] 10/13/2023 19:34:46 10/13/19 24 10/13/2023 COMPR EHENS DERIAN METAB OLIC PANEL total protein 7.8 g/dL 6.4-8. 2 normal Not Available [address] [place], [address] 10/13/2023 19:34:46 10/13/19 24 10/13/2023 COMPR EHENS DERIAN METAB OLIC PANEL albumin 3.8 g/dL 3.4-5. 0 normal Not Available [address] [place], [address] 10/13/2023 19:34:46 10/13/19 24 10/13/2023 COMPR EHENS DERIAN METAB OLIC PANEL bilirubin, total 0.3 mg/dL 0.2-1. 0 normal Not Available [address] [place], [address] 10/13/2023 19:34:46 10/13/19 24 10/13/2023 COMPR EHENS DERIAN METAB OLIC PANEL alk phos 126 U/L 46-116 high Not Available [address] [place], [address] 10/13/2023 19:34:46 10/13/19 24 10/13/2023 COMPR EHENS DERIAN METAB OLIC PANEL sodium 141 mmol/ L 136-14 5 normal Not Available [address] [place], [address] 10/13/2023 19:34:46 10/13/19 24 10/13/2023 COMPR EHENS DERIAN METAB OLIC PANEL potassium 4.0 mmol/ L 3.5-5. 1 normal Not Available [address] [place], [address] 10/13/2023 19:34:46 10/13/19 24 10/13/2023 COMPR EHENS DERIAN METAB OLIC PANEL chloride 104 mmol/ L 98-107 normal Not Available [address] [place], [address] 10/13/2023 19:34:46 10/13/19 24 10/13/2023 COMPR EHENS DERIAN METAB OLIC PANEL CO2 26.6 mmol/ L 21.0-3 2.0 normal Not Available [address], [address] 10/13/2023 19:34:46 10/13/19 24 10/13/2023 COMPR EHENS DERIAN METAB OLIC PANEL anion gap 10.4 mmol/ L 3-11 normal Not Available [address] [place], [address] 10/13/2023 19:34:46 10/13/19 24 10/13/2023 COMPR EHENS DERIAN METAB OLIC PANEL AST 44 U/L 15-37 high Not Available [facility] [address], [address] 10/13/2023 19:34:46 10/13/19 24 10/13/2023 COMPR EHENS DERIAN METAB OLIC PANEL ALT 78 U/L 14-59 high Not Available Iz[facility] [address] [place], [address] 10/13/2023 19:34:46 10/13/19 24 10/13/2023 TSH TSH 2.29 uIU/m L 0.36-3 .74 normal Not Available [facility] (Registration ) [address] [place] [address] [place], [address], 10/13/2023 19:34:46 10/13/19 24 10/17/2023 ANTI NUCLE AR ANTIB CRISTIAN, IFA DIEGO interpretati on Negati ve negati ve No titer perfo rmed, DIEGO Scree n is negat derian. Resul ts were obtai remedios with the INOVA NOVA Lite HEp-2 DIEGO Kit by indir ect immun [facility]. Test perfo rmed or refer red by [facility] [address], [facility] [place] [address] Not Available [address] [place], [address] 10/17/2023 16:45:23 10/13/19 24 10/17/2023 LYME AB W RFLX TO LYME CONFI RM lyme Ab W rflx to lyme confirm Negati ve negati ve Test perfo rmed or refer red by [facility] [address], [place] [address] Not Available [address] [place], [address] 10/17/2023 16:45:23 10/13/19 24 10/16/2023 TICK- BORNE DNA PANEL , PCR, B anaplasma phagocytophi lum Negati ve negati ve Not Available [address] [place], [address] 10/17/2023 16:45:24 10/13/19 24 10/16/2023 TICK- BORNE DNA PANEL , PCR, B ehrlichia chaffeensis Negati ve negati ve Not Available [address] [place], [address] 10/17/2023 16:45:24 10/13/19 24 10/16/2023 TICK- BORNE DNA PANEL , PCR, B ehrlichia ewingii/cani s Negati ve negati ve Not Available [address] [place], [address] 10/17/2023 16:45:24 10/13/19 24 10/16/2023 TICK- BORNE DNA PANEL , PCR, B ehrlichia muris eauclairensi s Negati ve negati ve ----- ----- ----- ----Artemio CERVANTES ONTRICIA INFOR MATIO N---- ----- ----- ----- This test was devel oped and its perfo rmanc e shakir cteri stics deter mined by [facility] [place] consi stent with CLIA requi remen ts. This test has not been clear ed or appro bernabe by the U.S. Food and Drug Admin istra tion. Not Available [address], [address] 10/17/2023 16:45:24 10/13/1910/16/2023 TICK- BORNE DNA PANEL , PCR, B babesia microti Negati ve negati ve Not Available [address] [place], [address] 10/17/2023 16:45:24 10/13/1910/16/2023 TICK- BORNE DNA PANEL , PCR, B babesia duncani Negati ve negati ve Not Available [address] [place], [address] 10/17/2023 16:45:24 10/13/1910/16/2023 TICK- BORNE DNA PANEL , PCR, B babesia divergens/MO -1 Negati ve negati ve ----- ----- ----- ----A DDITI ONAL INFOR MATIO N---- ----- ----- ----- This test was devtayler oped and its perfo rmanc e shakir cteri stics deter [facility]ined [facility] [place] consi stent with CLIA requi remen ts. This test has not been clear ed or appro bernabe by the U.S. Food and Drug Admin istra tion. Not Available [address] [place], [address] 10/17/2023 16:45:24 10/13/1910/16/2023 TICK- BORNE DNA PANEL , PCR, B B. miyamotoi PCR Negati ve negati ve ----- ----- ----- ----A DDITI ONAL INFOR MATIO N---- ----- ----- ----- This test was devel oped and its perfo rmanc e shakir cteri stics deter mined by [facility] in a [place] r consi stent with KARINA snowden ts. This test has not been clear ed or appro bernabe by the U.S. Food and Drug Admin istra tion. Test Perfo rmed by: [facility] [place] [facility] [address], [place] [address] Lab Direc tor: Shadi Simon Ph.D. ; CLIA# [id number] Not Available [address] [place], [address] 10/17/2023 16:45:24 12/22/19 24 12/26/2023 OVA ADELITA ITE parasite growth SEE BELOW RESUL T: No ova and adelita ites seen. Sourc e:fec es (If Crypt ospor idium , Cyclo spora , or Micro spori dium are suspe cted, speci fic tests must be reque sted. ) Singl e negat derian speci men does not rule out the possi bilit y of a adelita itic infec tion. Test perfo rmed or refer red by [facility] [address], [place] [address] Not Available [address] [place], [address] 12/27/2023 10:00:27 12/22/19 24 12/27/2023 HELIC OBACT ER PYLOR I AG, FECES helicobacter pylori Ag, feces Negati ve negati ve Indic ates the absen ce of H. pylor i stool antig en, (or the level of antig en is below that which can be detec rachelle by the assay ) [place] on XL testi ng metho d used as of 05/23 Test perfo rmed or refer red by [facility] [address] [place] [address] Not Available [address] [place], [address] 12/27/2023 14:45:19 03/08/20 24 03/08/2024 COMPL ETE BLOOD COUNT NO DIFF WBC 10.15 10_3/ uL 4.4-10 .8 normal Not Available [address] [place], [address] 03/08/2024 19:07:41 03/08/20 24 03/08/2024 COMPL ETE BLOOD COUNT NO DIFF RBC 4.68 10_6/ uL 3.93-5 .22 normal Not Available [address] [place], [address] 03/08/2024 19:07:41 03/08/20 24 03/08/2024 COMPL ETE BLOOD COUNT NO DIFF HGB 14.2 g/dL 11.2-1 5.7 normal Not Available [address] [place], [address] 03/08/2024 19:07:41 03/08/20 24 03/08/2024 COMPL ETE BLOOD COUNT NO DIFF HCT 43.7 % 36.0-4 6.0 normal Not Available [address] [place], [address] 03/08/2024 19:07:41 03/08/20 24 03/08/2024 COMPL ETE BLOOD COUNT NO DIFF MCV 93 fL 80-95 normal Not Available [address] [place], [address] 03/08/2024 19:07:41 03/08/20 24 03/08/2024 COMPL ETE BLOOD COUNT NO DIFF MCH 30.3 pg 27.0-3 3.0 normal Not Available [address] [place], [address] 03/08/2024 19:07:41 03/08/20 24 03/08/2024 COMPL ETE BLOOD COUNT NO DIFF MCHC 32.5 % 32.0-3 6.0 normal Not Available [address] [place], [address] 03/08/2024 19:07:41 03/08/20 24 03/08/2024 COMPL ETE BLOOD COUNT NO DIFF RDW 13.2 % 11.7-1 4.6 normal Not Available [address] [place], [address] 03/08/2024 19:07:41 03/08/20 24 03/08/2024 COMPL ETE BLOOD COUNT NO DIFF platelet count 290 10_3/ uL 130-40 0 normal Not Available [address] [place], [address] 03/08/2024 19:07:41 03/08/20 24 03/08/2024 COMPL ETE BLOOD COUNT NO DIFF MPV 9.9 fL 8.0-11 .0 normal Not Available [address] [place], [address] 03/08/2024 19:07:41 03/08/20 24 03/08/2024 COMPR EHENS DERIAN METAB OLIC PANEL calcium 9.1 mg/dL 8.5-10 .1 normal Not Available [address] [place], [address] 03/08/2024 19:30:45 03/08/20 24 03/08/2024 COMPR EHENS DERIAN METAB OLIC PANEL glucose 104 mg/dL 74-106 normal Not Available [facility] [address] [place], [address] 03/08/2024 19:30:45 03/08/20 24 03/08/2024 COMPR EHENS DERIAN METAB OLIC PANEL BUN 19 mg/dL 7-18 high Not Available Izzy leyva [address] [place], [address] 03/08/2024 19:30:45 03/08/20 24 03/08/2024 COMPR EHENS DERIAN METAB OLIC PANEL creatinine 0.7 mg/dL 0.55-1 .02 normal Not Available [address] [place], [address] 03/08/2024 19:30:45 03/08/20 24 03/08/2024 COMPR EHENS DERIAN METAB OLIC PANEL estimated GFR 109.30 mL/min /1.73m 2 The eGFR is calcu lated from a serum creat inine using the CKD-E PI 2020 equat ion. Other varia bles requi red for the equat ion are gende r and age; this equat ion does not inclu de a race coeff icien t. This equat ion has simil ar overa ll perfo rmanc e to previ ous equat ions excep t value s may diffe r, in parti cular , in patie nts with highe r value s of eGFR and young er-ag ed adult s. Not Available [address] [place], [address] 03/08/2024 19:30:45 03/08/20 24 03/08/2024 COMPR EHENS DERIAN METAB OLIC PANEL total protein 7.7 g/dL 6.4-8. 2 normal Not Available [address] [place], [address] 03/08/2024 19:30:45 03/08/20 24 03/08/2024 COMPR EHENS DERIAN METAB OLIC PANEL albumin 3.9 g/dL 3.4-5. 0 normal Not Available [address] [place], [address] 03/08/2024 19:30:45 03/08/20 24 03/08/2024 COMPR EHENS DERIAN METAB OLIC PANEL bilirubin, total 0.25 mg/dL 0.2-1. 0 normal Not Available [address] [place], [address] 03/08/2024 19:30:45 03/08/20 24 03/08/2024 COMPR EHENS DERIAN METAB OLIC PANEL alk phos 119 U/L 46-116 high Not Available [address] [place], [address] 03/08/2024 19:30:45 03/08/20 24 03/08/2024 COMPR EHENS DERIAN METAB OLIC PANEL sodium 141 mmol/ L 136-14 5 normal Not Available [address] [place], [address] 03/08/2024 19:30:45 03/08/20 24 03/08/2024 COMPR EHENS DERIAN METAB OLIC PANEL potassium 3.7 mmol/ L 3.5-5. 1 normal Not Available [address] [place], [address] 03/08/2024 19:30:45 03/08/2003/08/2024 COMPR EHENS DERIAN METAB OLIC PANEL chloride 104 mmol/ L 98-107 normal Not Available [address] [place], [address] 03/08/2024 19:30:45 03/08/20 24 03/08/2024 COMPR EHENS DERIAN METAB OLIC PANEL CO2 29.6 mmol/ L 21.0-3 2.0 normal Not Available [address] [place], [address] 03/08/2024 19:30:45 03/08/2003/08/2024 COMPR EHENS DERIAN METAB OLIC PANEL anion gap 7.4 mmol/ L 3-11 normal Not Available [address] [place], [address] 03/08/2024 19:30:45 03/08/20 24 03/08/2024 COMPR EHENS DERIAN METAB OLIC PANEL AST 35 U/L 15-37 normal Not Available Izzy [address] [place], [address] 03/08/2024 19:30:45 03/08/2003/08/2024 COMPR EHENS DERIAN METAB OLIC PANEL ALT 53 U/L 14-59 normal Not Available [address] [place], [address] 03/08/2024 19:30:45 03/08/20 24 03/08/2024 TSH (W/RE F FT4) TSH (w/ref FT4) 3.45 uIU/m L 0.36-3 .74 normal Not Available [address] [place], [address] 03/08/2024 19:30:46 03/08/2003/08/2024 TROPO YOEL I troponin I < 50 NG/L < or =60 Not Available [address] [place], [address] 03/08/2024 19:30:46 11/10/1911/10/2023 US, abdom en ABNORM AL FINDIN G [...] No mass. No hydron ephros is. IMPRES MICHELLE: 1. Mild fatty infilt ration of the liver. 2. No eviden ce of cholel ithias is or cholec ystiti s. Report signed by: Amena Ambrose on On 2023 19:04: 56 [facility] [address], [place], [address], 12/02/2023 07:50:38 04/12/20 24 04/12/2024 exerc ise stres s test STRESS TEST PATIEN T NAME: Flores Ramsey UNIT #: [id number] ORDERI NG PROVID ER: Liya Denny ACCOUN T #: [id number] PRIMAR Y CARE PROVID ER: JOSIAS AGUILAR,SANDIE ELAIDE DATE/T ANAY OF S ERVICE : ADMITT ING PROVID ER: KENNETH MOSER MD : 1979 ------ ------ --- APPROV ED REPORT ------ ------ -- Exam: Exerci se Treadm ill Patien t Locati on: Out-Pa tient Room/B ed: Stress Nurse: Damaris Brown , RN Orderi ng Provid er:PARAS FLORES N, [place] t Number : BMI: 38.78 Baseli ne Rhythm : Sinus Rhythm Indica tions: Chest pain Medica l Histor y Medica l Histor y: liver steato sis, muscle pain Cardia c Medica tions: None Allerg ies: NKDA Cardia c Risk Factor s: +Famil y histor y Previo us Cardia c Proced ures: None Pretes t Chest Pain Charac terist ics: None Exerci se Histor y: Indete rminat e Physic al Disabi lities : None Lung Sounds : LCTA Heart Sounds : Regula r, S1/S2 Stress Test Detail s Test: Exerci se stress testin g was perfor med using a Jaspal protoc ol. Rest Stress HR Restin g HR Supine : 77 bpm Max Heart Rate (APMHR ): 176 bpm Restin g HR Standi n bpm Target HR (85% APMHR) : 150 bpm Max HR Achiev ed: 158 bpm % of APMHR: 90 Recove ry HR: 94 bpm HR respon se to stress : Normal HR respon se to stress BP Restin g BP Supine : 140/88 mmHg Restin g BP Standi n/84 mmHg Max BP: 202/68 mmHg Recove ry BP: 146/78 mmHg BP respon se to stress : Normal blood pressu re respon se to stress . ECG Restin g ECG: Sinus Rhythm Ectopy : None Stress ECG: Sinus Tachyc ardia ST Change : No signif icant ST segmen t change s noted Arrhyt hmia: Rare PVC Recove ry ECG: Sinus Rhythm Recove ry ST Change : No signif icant ST segmen t change s noted Recove ry Arrhyt hmia: Rare PVC Clinic al Reason for Termin ation: Fatigu e, Target HR Achiev ed Stress Sympto ms: mild dizzin ess Exerci se durati on: 8 min30 sec Highes t Stage Reache d: Stage 3: 3.4 mph at 14% grade. Exerci se capaci ty: 10.16 METs Angina Score: None Childs Treadm ill Score: 8.1 Rate Pressu re Produc t: 28885 Stress ECG Conclu michelle 1. Restin g electr ocardi ogram was normal 2. Patien t exerci sed on the Jaspal protoc ol and comple rachelle a worklo ad of 10.16 METS 3. Normal heart rate and blood pressu re respon se to exerci se. The mason lemons achiev ed 90% of predic rachelle heart rate for age 3. There was no electr ocardi ograph ic eviden ce of myocar dial ischem ia 5. There were no signif icant dysrhy thmias Childs Treadm ill Score is 8.1 which is Low risk. Stress Test Summar y STAGE Time (mins) Speed (mph) Grade (%) HR BP SpO2 SYMPTO MS METS Supine 77 140/88 97% Standi ng 74 136/84 1 3 1.7 10 113 4.5 2 6 2.5 12 133 7 3 9 3.4 14 154 10 1 min recove ry 121 202/68 3 min recove ry 103 178/62 92% 6 min recove ry 99 146/78 9 min recove ry 95 Mason lemons presbipin bush accomp anied by her michelle castrejon and [facility] staff member with interp reter servic es establ ished via [employer] as mason lemons is spanis h speaki ng only. Utiliz ing interp reter servic es the test was explai remedios and consen t was signed . Mason lemons tolera rachelle test well with no advers e signs or sympto ms. Mason lemons left ambula tory in no appare nt distre ss. [employer] interp reter was utiliz ed for the entire ty of test. ------ ------ ------ ------ ------ ------ ------ ------ ------ ------ ------ ------ ------ ------ ------ ------ ---- -- Dictat ed by: KENNETH MOSER MD Dictat ed:: 4 950 Transc ribed Date: Transc ribed Time: 950 By: EDUARDO This is privil eged, confid ential inform ation, intend ed only for the provid er named. Any use or distri bution by any person other than this provid er is strict ly prohib ited. If you receiv e this report in error, please notify us immrenetta azevedo at and return the origin al report to us at the addres s above. Thank you. [email or web address] [facility] [address] , [place], [address] 04/12/2024 14:19:04 04/15/20 24 10/30/2022 imagi ng/di agnos tic resul t No observ ation record ed. [email or web address] Not Available 04/15 23:02:48 04/15/20 24 10/30/2022 imagi ng/di agnos tic resul t No observ ation record ed. [email or web address] Not Available 04/15 23:02:54 04/15/20 24 01/28/2020 CT, abdom en + pelvi s No observ ation record ed. [email or web address] Not Available 04/15 23:02:55 04/15/20 24 01/28/2020 CT, abdom en + pelvi s No observ ation record ed. [email or web address] Not Available 04/15 23:02:56 Result Notes None recorded. Problems Name Problem SNOMED Code Status Onset Date Resolution Date Notes Provider Name and Address Organization Details Recorded Time Adult health examinat ion Completed 201910/07/2023 Maxine english [facility] 4 11:29:50 Epigastr ic pain 04542405 Completed 202005/03/2024 MARGOTH MARTINEZ PA-C [address], [place], [address], [facility] 4 11:12:06 Contrace ption care manageme nt Active 2020 Maxine english [facility] 4 11:29:59 Abdomina l pain 24799410 Completed 202112/22/[address], [place], [address], [facility] 4 11:00:29 Pelvic and perineal pain 420779330 Active 2021 Maxine Ryder [facility] 4 11:33:06 Non-scar ring alopecia 598748232 Active 2021 Hair loss [facility] 4 11:32:52 Menopaus e present 952599141 Active 2021 Hot flashes [facility] 4 11:32:29 Gynecolo gic examinat ion Active 2021 [facility] 4 11:30:51 Headache 35751564 Completed 202211/10/2022 unspecif ied [facility] 4 11:31:35 Hordeolu m externum of left eyelid 78043907762 9104 Active 2022 [facility] 4 11:31:56 Muscle pain 93246588 Active [address], [place], [address], [facility] 4 09:51:56 Fever 312284298 Completed 202312/22/[address], [place], [address], [facility] 4 10:54:47 Fatigue 80346372 Active [address], [place], [address], [facility] 4 09:54:48 Steatosi s of liver 989410496 Active 2023 mild MARGOTH MARTINEZ PA-C [address], [place], [address], [facility] 4 11:00:41 Gastroes ophageal reflux disease 272678523 Active 2023 MARGOTH MARTINEZ PA-C [address], [place], [address] , [facility] 4 11:12:11 Problem Notes None recorded. Procedures Surgical History Date Name Laterality Status Provider Name and Address Organization Details Recorded Time 2 Date of Last Pap Smear completed Amber Rivera RN [facility] 10/11/2023 12:50:47 2 Colonoscopy completed Amber Rivera RN [facility] 10/11/2023 12:51:57 Imaging Results Imaging Date Name Status LastModified by Organiz ation Details LastModified Time 11/10/2023 US, abdomen completed [facility] [address], [place], [address], 12/02/2023 07:50:38 04/12/2024 exercise stress test completed [email or web address] [facility] [address] [facility] , [facility] [place], [address] 04/12/2024 14:19:04 10/30/2022 imaging/diagn ostic result completed Information not available 04/15/2024 23:02:48 10/30/2022 imaging/diagn ostic result completed Information not available 04/15/2024 23:02:54 01/28/2020 CT, abdomen + pelvis completed Information not available 04/15/2024 23:02:55 01/28/2020 CT, abdomen + pelvis completed Information not available 04/15/2024 23:02:56 Procedure Notes None recorded. Medical Equipment None [...] Details Last Updated DateTime 4 147.955 cm 36.3 kg/m2 96205.6 6 g 96 % 96 % 70 /min 138 mm[Hg] 88 mm[Hg] KEENAN GORDON RN [place] - [facility] 4 09:22:20 Date Recorded Body height Body mass index (BMI) Body weight Body temperature Oxygen saturation Oxygen saturation in Arterial blood by Pulse oximetry Heart rate Respiratory rate Systolic blood pressure Diastolic blood pressure Provider Name and Address Organization Details Last Updated DateTime 4 147.955 cm 35.6 kg/m2 21995.8 9 g 97.2 [degF] 97 % 97 % 70 /min 18 /min 120 mm[Hg] 70 mm[Hg] VEE MILLS LPN [facility] 4 10:37:56 Date Recorded Body height Oxygen saturation Oxygen saturation in Arterial blood by Pulse oximetry Heart rate Systolic blood pressure Diastolic blood pressure Provider Name and Address Organization Details Last Updated DateTime 4 147.955 cm 96 % 96 % 70 /min 122 mm[Hg] 74 mm[Hg] ARRON GUNDERSON MA [facility] 4 10:18:50 Date Recorded Body height Body mass index (BMI) Body weight Oxygen saturation Oxygen saturation in Arterial blood by Pulse oximetry Heart rate Systolic blood pressure Diastolic blood pressure Provider Name and Address Organization Details Last Updated DateTime 4 147.955 cm 35.9 kg/m2 10945.9 2 g 97 % 97 % 67 /min 128 mm[Hg] 68 mm[Hg] ARRON GUNDERSON MA [facility] 4 13:53:03 Date Recorded Body height Oxygen saturation Oxygen saturation in Arterial blood by Pulse oximetry Heart rate Systolic blood pressure Diastolic blood pressure Provider Name and Address Organization Details Last Updated DateTime 4 147.955 cm 96 % 96 % 76 /min 118 mm[Hg] 64 mm[Hg] ARRON GUNDERSON MA [facility] 4 10:59:55 Social History Question Answer Notes LastModified by Organizat ion Details LastModified Time Tobacco Smoking Status Never Smoker Amber Rivera RN null, [facility] 10/11/2023 12:52:24 Do You Have An Advance Directive? No [email or web address] Information not available 10/11/2023 What Was The Date Of Your Most Recent Tobacco Screening? 12/22/2023 [email or web address] Information not available 12/22/2023 Sex: Female Functional Status None recorded. Mental Status None recorded. Family History Nothing Reported Notes:*Problem: Mother- 66, HTN no other significant family hx Medical History No medical history recorded. Gynecological History Statement/Question Response Date of Last Pap Smear 02/24/2022 Obstetrics History GPAL:G 0 P 0 0 0 0 Immunizations Vaccine Type Date Status Provider Name and Address Organization Details Recorded Time Influenza, split virus, trivalent, PF 05/03/2024 completed CHARLY AUSTIN [place] [facility]. 05/03/2024 11:23:05 Tdap 03/14/2020 completed Not Available [facility] 06:12:01 COVID-19, mRNA, LNP-S, PF, 100 mcg/0.5mL dose or 50 mcg/0.25mL dose 11/20/2020 completed Not Available [facility] 06/10/2023 06:12:01 COVID-19, mRNA, LNP-S, PF, 100 mcg/0.5mL dose or 50 mcg/0.25mL dose 12/20/2020 completed Not Available [facility] 06/10/2023 06:12:01 Past Encounters Encounter ID Performer Location Encounter Start Date Encounter Closed Date Diagnosis/Indication Diagnosis SNOMED-CT Code Diagnosis ICD10 Code [id number] PILO FERRARA [address] [address] 10/13/2023 08:55:58 10/13/2023 10:22:19 Muscle pain 36558114 M79.10 Fever 164558818 R50.9 Fatigue 39714393 R53.83 [id number] MARGOTH MARTINEZ [address] [address] 12/22/2023 10:24:33 12/22/2023 11:31:33 Epigastric pain 43996033 R10.13 Non-alcoho lic fatty liver disease 1883903116 K76.0 Constipation 36133376 K5 9.00 [id number] MARGOTH MARTINEZ [address] [address] 01/19/2024 10:02:56 01/19/2024 10:53:14 Epigastric pain 98357883 R10.13 [id number] MARGOTH MARTINEZ [address] [address] 03/08/2024 13:43:17 03/08/2024 15:02:28 Epigastric pain 41250460 R10.13 Chest pain 04456930 R07. 9 Dizziness 092188098 R42 [id number] MARGOTH MARTINEZ PA-C [facility] [address] [place] [address] 05/03/2024 10:53:02 05/03/2024 11:26:28 Active or passive immunization 673627248 Z23 Gastroesop hageal reflux disease 181827542 K21.9 Dizziness and giddiness 530003427 R42 Health Concerns Section Related Observation LastModified by Organization Detai ls LastModified Time None Recorded Concern Status LastModified by Organization Details LastModified Time None Recorded Advance Directives Directive N: Payers Encounter Date Sequence Insurance Name Policy Number Policy Parrish Covered Member ID Parrish Member ID Guarantor Name 12/22/2023 1 *SELF PAY* Ne ly Meghana John Naranjo 01/19/2024 1 *SELF PAY* Ne ly Meghana John Naranjo 03/08/2024 1 *SELF PAY* Ne ly Meghana John Naranjo 05/03/2024 1 *SELF PAY* Ne ly Meghana John Naranjo Notes Date Note Type Note Provider Name and Address Organization Details Recorded Time 10/13/2023 text/html cc Feeling sick Unfortunately our translation line was not working, we used phone nail puller Throat pain x 3 months, different from her epigastric pain, has had fevers and elevated lymph node behind her neck x 5 months, does not wax and wane, does feel a little sick, has associated headache, dizziness, muscle aches, has chills in the night. Was told by in [facility] that she had infection in her blood [...] hot flashes Has significant fatigue PILO FERRARA, JEFF [address], [place], [address], [facility], [facility]. 10/13/2023 11:03:39 12/22/2023 text/html 43-year-old avril weston patient presents with epigastric pain The patient [...] conditions MARGOTH MARTINEZ PA-C [address], [place], [address], [facility], [facility] 12/22/2023 11:48:14 01/19/2024 text/html The patient presents for follow-up of epigastric [...] with fiber supplement. - The patient is Malagasy speaking and uses a nail puller during appointments. MARGOTH MARTINEZ PA-C [address], [place], [address], [facility], [facility]. 01/19/2024 12:39:02 03/08/2024 text/html The patient presents with concerns about dizziness and chest pain. Translation service provided ([id number]) Epigastric pain: The patient was previously diagnosed with epigastric pain and is currently taking pantoprazole daily for management. The patient reports that her stomach symptoms have improved since starting the medication. Abnormal Pap smear: The patient had an abnormal Pap smear four years ago but had a normal Pap smear in January of 2022. I do not have record of abnormal pap. she wants to hold off on repeating pap at this time. Dizziness: The patient has been experiencing dizziness for the past two weeks, particularly when bending down. The dizziness is described as feeling off-balance and occurs when turning her head quickly to the right. Chest pain: The patient has been experiencing chest pain a couple of times a week for an unspecified duration. The pain occurs while working. The patient also reports experiencing a rapid heartbeat followed by a slowing that causes pain. - No nausea or vomiting associated with dizziness - No pain radiating down the arm or neck during chest pain episodes - No sweating, nausea, or vomiting during chest pain episodes MARGOTH MARTINEZ PA-C [address], [place], [address], [facility] 03/09/2024 17:01:20 05/03/2024 text/html Patient consente d to the use of [employer] to record and transcribe notes during this visit. translation services provided The patient, Ya Naranjo, presents for a follow-up visit regarding her epigastric pain from GERD. She reports that her stress test and blood work results were normal. The patient mentions that she has been feeling better and has been trying to take a one-hour nap during the day to help with her previously reported dizziness. She states that the nap has helped resolve her dizziness. No other concerns were reported during the visit. [address], [place], [address], [facility]. 05/03/2024 12:12:53 OBGyn Episode No OBEpisode recorded.
--- OUTSIDE RECORDS SUMMARY | 2024-06-21 20:35 | XMS_ITS | Encounter Summary ---
Author Organization [facility] Address [address] [place] [address] Care Team Providers Care Bill Sorter Name Role Phone Veronica Pro SOFT SUGAR CUTTER Primary Care Provider Encounter Details Date Type Department Care Team (Late st Contact Info) Description 02/24/2022 Lab Requisition [facility] Pathology & Laboratory Medicine - [facility] [address] [place] [address] Veronica Pro, SOFT SUGAR CUTTER [address] [place], [place] [id number] Encounter for other general examination Social History Tobacco Use Types Packs/Day Years Used Date Smoking Tobacco: Never Assessed Comments Unknown Sex and Gender Information Value Date Recorded Sex Assigned at Not on file Legal Sex Female 12:54 EDT Gender Identity Not on file Sexual Orientation [...] types, PCR Negative Negative 03/02/2022 22:57 EDT [facility] Comment:No E6 or E7 mRNA is detected from HPV types 16,18,31,33,35,39,45,51,52,56,58,59,66, and 68 by credit card associate mediated amplification. Papanicolaou smear specimen (specimen) CERVIX UTERI STRUCTURE / Unknown 02/22/2022 16:50 EDT 03/01/2022 15:20 EDT Veronica Pro NP MICROBIOLOGY - GENERAL ORDER CHRISTA Final Result [facility] [address] [place] [address] * PAP TEST (02/22/2022 16:50 EDT) Specimens A. Cervix and/or Endocervix , ThinPrep Imaging System with Manual Evaluation 03/02/2022 22:58 EDT [facility] Specimen Adequacy Satisfactory for Evaluation - transformation zone component present 03/02/2022 22:58 EDT [facility] General Categorization Negative for intraepithelial lesion or malignancy 03/02/2022 22:58 EDT [facility] Attestation . 03/02/2022 22:58 EDT [facility] at 2257 Clinical History See below 03/02/20 22:58 EDT [facility] HPV The result for the Human Papillomavirus (HPV) Detection-High Risk Types is Negative. No E6 or E7 mRNA is detected from HPV types 16,18,31,33,35,39 ,45,51,52,56,58,5 9,66, and 68 by credit card associate mediated amplification.Jody ting was performed on specimen [id number] and was resulted on 03/02/2022 2231 EDT by JOEY, LAB INSTRUMENT RESULTS IN 03/02/2022 22:58 EDT [facility] Performing Lab [facility] 03/02/2022 22:58 EDT [facility] Scanned Images 03/02/2022 22:58 EDT [facility] Papanicolaou smear specimen (specimen) CERVIX UTERI STRUCTURE / Unknown 02/22/2022 16:50 EDT 02/24/2022 13:54 EDT Veronica Pro NP PATHOLOGY ORDERABLES Final R esult [facility] [address] [place] [address] documented in this encounter Visit Diagnoses Diagnosis Encounter for other general examination documented in this encounter Care Teams Bill Sorter Relationship Specialty Start Date End Date Veronica Pro NP PCP - General 12/30/21 documented as of this encounter
--- OUTSIDE RECORDS SUMMARY | 2024-06-21 20:35 | XMS_ITS | Encounter Summary ---
Author Organization [facility] Address [address] [place] [address] Care Team Providers Care Fuel Distribution System Operator Name Role Phone Veronica Pro EVISCERATOR Primary Care Provider Encounter Details Date Type Department Care Team (Late st Contact Info) Description 01/25/2022 Lab Requisition [facility] Pathology & Laboratory Medicine - [address] [address] Whitney Willis MD [address] [place] [address] [address] [place] [phone] Encounter for other general examination Social History [...] management options, if applicable. 01/29/2022 14:08 EDT [facility] Final Diagnosis A. STOMACH, ANTRUM, [...] - Hyperplastic polyp. See comment. 01/29/2022 14:08 [facility] Diagnosis Comment Deeper levels into blocks D and E have been examined. 01/29/2022 14:08 [facility] Attestation By the signature below, the attending physician certifies that they have 1) personally conducted a gross and/or microscopic examination of the described specimen(s), and/or personally interpreted the results of laboratory testing of the described specimen(s), and 2) personally rendered or confirmed the above diagnosis. 01/29/2022 14:08 [facility] at 1408 Clinical History Abdominal pain 01/29/2022 14:08 [facility] Gross Description A. Received [...] E1. SOHEILA OSMAN(ASCP) 01/26/2022 9:09 01/29/2022 14:08 EDT [facility] Performing Lab [facility] 14:08 EDT [facility] Scanned Images 01/29/2022 14:08 EDT [facility] Tissue ENTIRE TRANSVERSE COLON / [...] Unknown 01/25/2022 7:30 EDT 01/25/2022 18:13 EDT us Whitney Willis MD PATHOLOGY ORDERABLES Fin al Result [facility] [address] [place] [address] documented in this encounter Visit Diagnoses Diagnosis Encounter for other general examination documented in this encounter Care Teams Fuel Distribution System Operator Relationship Specialty Start Date End Date Veronica Pro NP PCP - General 12/30/21 documented as of this encounter
--- OUTSIDE RECORDS SUMMARY | 2024-06-21 20:35 | XMS_ITS | Encounter Summary ---
Author Organization [facility] Address [address] [place] [address] Care Team Providers Care Delivery Clerk Name Role Phone Veronica Pro DIRECTOR OF AUDIOLOGY Primary Care Provider Encounter Details Date Type Department Care Team (Late st Contact Info) Description 02/24/2022 Lab Requisition [facility] Pathology & Laboratory Medicine - [facility] [address] [place] [address] Veronica Pro NP [address] [place] [address] Encounter for screening for malignant neoplasm of [...] cervix documented in this encounter Care Teams Delivery Clerk Relationship Specialty Start Date End Date Veronica Pro NP PCP - General 12/30/21 documented as of this encounter
--- OUTSIDE RECORDS SUMMARY | 2024-06-21 20:35 | XMS_ITS | Encounter Summary ---
Author Organization [facility] Address [address] [place] [address] Care Team Providers Care Cloth Covered Helmet Puller Name Role Phone Veronica Pro SKID ADZER Primary Care Provider Encounter Details Date Type Department Care Team (Late st Contact Info) Description 12/23/2023 Lab Requisition [facility] Laboratory Medicine - [address] [id number] Outr Resulting Lab, Provider Social History Tobacco [...] H. Pylori Negative Negative 12/27/2023 13:41 EDT [facility] Comment:Indicates the absenc e of H. pylori stool antigen, (or the level of antigen is below that which can be detected by the assay) Feces SPECIMEN FROM RECTUM / Unknown 12/22/2023 11:30 EDT 12/23/2023 17:54 EDT Narrative [facility] - 12/27/2023 13:41 EDT New Liaison XL testing method used as of 05/23/2023 us Provider Outr Resulting Lab MICROBIOLOGY - GENER AL ORDERABLES Final Result [facility] [address] [place] [address] documented in this encounter Visit Diagnoses Not on filedocumented in this encounter Care Teams Cloth Covered Helmet Puller Relationship Specialty Start Date End Date Veronica Pro NP PCP - General 12/30/21 documented as of this encounter
--- OUTSIDE RECORDS SUMMARY | 2024-06-21 20:35 | XMS_ITS | Encounter Summary ---
Author Organization [facility] Address [address] [place] [address] Care Team Providers Care Assistant Manager/Embalmer Name Role Phone Veronica Pro BLUEPRINT DUPLICATOR Primary Care Provider Encounter Details Date Type Department Care Team (Late st Contact Info) Description 10/07/2021 Lab Requisition [facility] Pathology & Laboratory Medicine - [facility] [address] [place] [address] Outr Resulting Lab, Provider Social History Tobacco [...] Priority Date/Time Associated Diagnosis Comments ZZCOVID-19 TEST [facility] PCR Today 10/06/2021 16:30 EST COVID-19 TESTING Routine 10/06/2021 16:3 0 EST documented in this encounter Results * COVID-19 TEST [facility] PCR (10/06/2021 16:30 EST) Swab 10/06/2021 16:3 0 EST 10/07/2021 16:15 EST us Provider Outr Resulting Lab MICROBIOLOGY - GENER AL ORDERABLES Final Result [facility] [address] [place] [address] * COVID-19 TESTING (10/06/2021 16:30 EST) COVID-19 rt-PCR Result Negative Negative 10/08/2021 11:24 EST [facility] Comment: This test has [...] was performed using the jah SARS-CoV-2 assay ([employer] on the Jah 6800 System Performing Lab Jah 6800 [facility] Lab 10/08/2021 11:24 EST [facility] Swab 10/06/2021 16:3 0 EST 10/07/2021 16:15 EST us Provider Outr Resulting Lab MICROBIOLOGY - GENER AL ORDERABLES Final Result [facility] [address] [place] [address] documented in this encounter Visit Diagnoses Not on filedocumented in this encounter Care Teams Assistant Manager/Embalmer Relationship Specialty Start Date End Date Veronica Pro NP PCP - General 12/30/21 documented as of this encounter
--- OUTSIDE RECORDS SUMMARY | 2024-06-21 20:35 | XMS_ITS | Continuity of Care Document ---
Author Organization [facility] Address [address] [place] [address] Care Team Providers Care Information Technology Security Manager Name Role Phone Veronica Pro Primary Care Physician [phone] Encounter [facility] Date(s): 11/10/23 - 11/10/[address] [address] us Discharge Disposition: Home or Self Care Attending Physician: Veronica Pro EARTH OBSERVATIONS CHIEF SCIENTIST Admitting Physician: Veronica Pro EARTH OBSERVATIONS CHIEF SCIENTIST Referring Physician: Veronica Pro EARTH OBSERVATIONS CHIEF SCIENTIST Social History Social History Type Response Sex Female Patient Care team information Care Team Personnel Name: Veronica Pro EARTH OBSERVATIONS CHIEF SCIENTIST Position: PowerChart View Only Member Role: Primary Care Physician Address: Address: [address] [place] [phone]
--- OUTSIDE RECORDS SUMMARY | 2024-06-21 20:35 | XMS_ITS | Encounter Summary ---
Author Organization [facility] Address [address] [place] [address] Care Team Providers Care Tape Coater Name Role Phone Veronica Pro HAND PRESSER Primary Care Provider [phone] Encounter Details Date Type Department Care Team (Late st Contact Info) Description 12/23/2023 Lab Requisition [facility] Pathology & Laboratory Medicine - [address] [phone] Outr Resulting Lab, Provider Social History Tobacco [...] ova and parasites seen. 12/26/2023 11:43 EDT [facility] Feces SPECIMEN FROM RECTUM / Unknown 12/22/2023 11:30 EDT 12/23/2023 18:49 EDT Narrative [facility] - 12/26/2023 11:43 EDT (If Cryptosporidium, Cyclospora, or Microsporidium are suspected, specific tests must be requested.) Single negative specimen does not rule out the possibility of a parasitic infection. us Provider Outr Resulting Lab MICROBIOLOGY - GENER AL ORDERABLES Final Result [facility] [address] [place] [address] documented in this encounter Visit Diagnoses Not on filedocumented in this encounter Care Teams Tape Coater Relationship Specialty Start Date End Date Veronica Pro NP PCP - General 12/30/21 documented as of this encounter
--- OUTSIDE RECORDS SUMMARY | 2024-06-21 20:35 | XMS_ITS | Encounter Summary ---
Author Organization [facility] Address [address] [place] [address] Care Team Providers Care Automobile Dealer Name Role Phone Veronica Pro PENSIONHOLDER INFORMATION CLERK Primary Care Provider [phone] Encounter Details Date Type Department Care Team (Late st Contact Info) Description 10/14/2023 Lab Requisition [facility] Pathology & Laboratory Medicine - [address] [id number] Outr Resulting Lab, Provider Social History Tobacco [...] Lyme Ab Negative Negative 10/17/2023 11:01 EDT [facility] Blood VENOUS BLOOD / Unknown 10/13/2023 10:10 EDT 10/14/2023 17:03 EDT us Provider Outr Resulting Lab IMMUNOLOGY AND SEROL OGY ORDERABLES Final Result [facility] [address] [place] [address] * ANTI NUCLEAR AB (DIEGO), IFA (10/13/2023 10:10 EDT) DIEGO Interpretation Negative Negative 2023 15:59 EDT [facility] Comment:No titer performed, DIEGO Screen is negative. Blood VENOUS BLOOD / Unknown 10/13/2023 10:10 EDT 10/14/2023 17:03 EDT Narrative [facility] - 10/17/2023 15:59 EDT Results were obtained with the IN[employer] NOVA Lite HEp-2 DIEGO Kit by indirect immunofluorescence. us Provider Outr Resulting Lab IMMUNOLOGY AND SEROL OGY ORDERABLES Final Result [facility] [address] [place] [address] documented in this encounter Visit Diagnoses Not on filedocumented in this encounter Care Teams Automobile Dealer Relationship Specialty Start Date End Date Veronica Pro NP PCP - General 12/30/21 documented as of this encounter
--- OUTSIDE RECORDS SUMMARY | 2024-06-21 20:35 | XMS_ITS | Referral Summary ---
Author Organization [facility] Address [address] [place] [address] Care Team Providers Care Transmission Maintenance Supervisor Name Role Phone Veronica Pro NP Primary Care Provider [phone] Social History Tobacco Use Types Packs/Day Years Used Date Smoking Tobacco: Never Assessed Comments Unknown Sex and Gender Information Value Date Recorded Sex Assigned at Not on file Legal Sex Female 12:54 EDT Gender Identity Not on file Sexual Orientation Not on file Plan of Treatment Not on file Care Teams Transmission Maintenance Supervisor Relationship Specialty Start Date End Date Veronica Pro NP PCP - General 12/30/21
--- OUTSIDE RECORDS SUMMARY | 2024-06-21 20:35 | XMS_ITS | Clinical Summary ---
Author Organization [facility] Address [address] [place] [address] Care Team Providers Care Environmental Health Specialist Name Role Phone Veronica Pro NP Primary Care Provider Social History Tobacco Use Types Packs/Day [...] 3-dose series) 07/23 COVID-19 Vaccine ( season) 2024 Care Teams Environmental Health Specialist Relationship Specialty Start Date End Date Veronica Pro NP PCP - General 12/30/21
--- OUTSIDE RECORDS SUMMARY | 2024-06-21 20:35 | XMS_ITS | Encounter Summary ---
Author Organization [facility] Address [address] [place] [address] Care Team Providers Care Acid Tender Name Role Phone Veronica Pro STRUCTURAL STEEL IRONWORKER Primary Care Provider Encounter Details Date Type Department Care Team (Late st Contact Info) Description 02/24/2021 Lab Requisition [facility] Pathology & Laboratory Medicine - [address] [address] Outr Resulting Lab, Provider Social History Tobacco [...] H. Pylori Negative Negative 02/26/2021 15:54 EDT [facility] Feces SPECIMEN FROM RECTUM / Unknown 02/23/2021 15:47 EDT 02/24/2021 15:31 EDT Narrative [facility] - 02/26/2021 15:54 EDT Results were obtained with the [employer] HpSA Plus VENKAT. us Provider Outr Resulting Lab MICROBIOLOGY - GENER AL ORDERABLES Final Result [facility] [address] [place] [address] documented in this encounter Visit Diagnoses Not on filedocumented in this encounter Care Teams Acid Tender Relationship Specialty Start Date End Date Veronica Pro, OG PCP - General 12/30/21 documented as of this encounter
--- OUTSIDE RECORDS SUMMARY | 2024-06-21 20:35 | XMS_ITS | Continuity of Care Document ---
Author [facility] Address [address] [place] [address] Assessment No assessment recorded. Plan of Treatment Reminders Order Date Submit Date Provider Last Modified By Organization Details Last Modified Time Details Appointments None record ed. Lab None record ed. Referral None record ed. Procedures None record ed. Surgeries None record ed. Imaging None record ed. Medication Orders None record ed. Patient TargetsNo targets recorded. Patient Instructions Encounter Date Encounter Id Patient Instructions Last Modified By Organization Details Last Modified Time 05/03/2024 [id number] continue with pantoprazole daily continue with naps in the afternoon Call with any questions or concerns continuar con pantoprazol diariamente Continuar con siestas por la tarde. Llame con cualquier pregunta o inquietud. Not available 05/03/2024 11:15:49 Reason for Referral None Reported. Results Created Date Observation Date Name Description Value Unit Range Abnormal Flag Note LastModifiedBy Organization Detail LastModifiedTime 04/12/20 24 04/12/2024 exerc ise stres s test STRESS TEST PATIEN T NAME: Maria Elena benítezFlores hernandez ly UNIT #: [id number] ORDERI NG PROVID ER: Liya Denny ACCOUN T #: [id number] PRIMAR Y CARE PROVID ER: SANDIE RONQUILLOAIDLisette DATE/T ANAY OF S ERVICE : ADMITT ING PROVID ER: KENNETH MOSER MD : 1979 ------ ------ --- APPROV ED REPORT ------ ------ -- Exam: Exerci se Treadm ill Patien t Locati on: Out-Pa tient Room/B ed: Stress Nurse: Damaris Brown , RN Orderi ng [facility] er:PARAS MITALI Tanner, Humble lemons Number : BMI: 38.78 Baseli ne Rhythm [...] Score: 8.1 Rate Pressu re Produc t: 16328 Stress ECG Conclu michelle 1. Restin g electr ocardi ogram was normal 2. Leobardo lemons exerci sed on the Jaspal protoc ol and comple rachelle a worklo ad of 10.16 METS 3. Normal heart rate and blood pressu re respon se to exerci se. The leobardo lemons achiev ed 90% of predic rachelle [...] 99 146/78 9 min recove ry 95 Leobardo lemons presbipin bush accomp anied by her michelle castrejon and [facility] staff member with interp reter servic es establ ished via [employer] as leobardo lemons is spanis h speaki ng only. Utiliz ing interp reter servic es the test was explai remedios and consen t was signed . Leobardo lemons tolerivet bush test well with no advers e signs or sympto ms. Leobardo lemons left ambula tory in no appare nt distre ss. [employer] interp reter was utiliz ed for the entire ty of test. ------ ------ ------ ------ ------ ------ ------ ------ ------ ------ ------ ------ ------ ------ ------ ------ ---- -- Dictat ed by: KENNETH MOSER MD Dictat ed:: [phone] Transc ribed Date: Transc ribed Time: 950 By: EDUARDO This is privil eged, confid ential inform ation, intend ed only for the provid er named. Any use or distri bution by any person other than this provid er is strict ly prohib ited. If you receiv e this report in error, please notify us immsharoni jolly at and return the origin al report to us at the addres s above. Thank you. [email or web address] [facility] [address], [place], [address] 04/12/2024 14:19:04 04/15/20 24 10/30/2022 imagi ng/di [...] health examinat ion Completed 201910/07/2023 Maxine english [facility] 4 11:29:50 Epigastr ic pain 02258987 Completed 202005/03/[address], [place], [address], [facility] 4 11:12:06 Contrace ption care manageme nt Active 2020 Maxine english [facility] 4 11:29:59 Abdomina l pain 39489823 Completed 202112/22/[address], [place], [address], [facility] 4 11:00:29 Pelvic and perineal pain 789326834 Active 2021 [facility] 4 11:33:06 Non-scar ring alopecia 327223860 Active 2021 Hair loss [facility] 4 11:32:52 Menopaus e present 055583900 Active 2021 Hot flashes [facility] 4 11:32:29 Gynecolo gic examinat ion Active 2021 [facility] 4 11:30:51 Headache 15330893 Completed 202211/10/2022 unspecif ied [facility] 4 11:31:35 Hordeolu m externum of left eyelid 22618784771 9104 Active 2022 [facility] 4 11:31:56 Muscle pain 87556535 Active [address], [place], [address], [facility] 4 09:51:56 Fever 354100511 Completed 202312/22/[address], [place], [address] [facility] 4 10:54:47 Fatigue 18689291 Active [address], [place], [address], [facility] 4 09:54:48 Steatosi s of liver 607838578 Active 2023 mild MARGOTH MARTINEZ PA-C [address], [place], [address], [facility] 4 11:00:41 Gastroes ophageal reflux disease 545396402 Active [address], [place], [address], [facility] 4 11:12:11 Problem Notes None recorded. Procedures Surgical History Date Name Laterality Status Provider Name and Address Organization Details Recorded Time 2 Date of Last Pap Smear completed Amber Rivera RN [facility] 10/11/2023 12:50:47 2 Colonoscopy completed Amber Rivera RN [facility] 10/11/2023 12:51:57 Imaging Results None recorded. Procedure [...] active Not Available Not Available Not Avai labenrico Sprintec (28) 0.25 mg-35 mcg tablet Take [...] Organization Details Last Updated DateTime 147.955 cm 96 % 96 % 76 /min 118 mm[Hg] 64 mm[Hg] ARRON GUNDERSON MA [facility] 10:59:55 Social History Question Answer Notes LastModified by Organizat ion Details LastModified Time Tobacco Smoking Status Never Smoker Amber Rivera RN [facility], [facility] 10/11/2023 12:52:24 Do You Have [...] virus, trivalent, PF 05/03/2024 completed CHARLY AUSTIN [facility] 05/03/2024 11:23:05 Tdap 03/14/2020 completed Not Available [facility] 06:12:01 COVID-19, mRNA, LNP-S, PF, 100 mcg/0.5mL dose or 50 mcg/0.25mL dose 11/20/2020 completed Not Available [facility] 06/10/2023 06:12:01 COVID-19, mRNA, LNP-S, PF, 100 mcg/0.5mL dose or 50 mcg/0.25mL dose 12/20/2020 completed Not Available [facility] 06/10/2023 06:12:01 Past Encounters Encounter ID Performer Location Encounter Start Date Encounter Closed Date Diagnosis/Indication Diagnosis SNOMED-CT Code Diagnosis ICD10 Code [id number] MARGOTH MARTINEZ PA-C [facility] [address] [place] [address] 05/03/2024 10:53:02 05/03/2024 11:26:28 Active or passive immunization 061697025 Z23 Gastroesop hageal reflux disease 909346277 K21.9 Dizziness and giddiness 903975817 R42 Health Concerns Section Related Observation LastModified by Organization Detai ls LastModified Time None Recorded Concern Status LastModified by Organization Details LastModified Time None Recorded Payers Encounter Date Sequence Insurance Name Policy Number Policy Parrish Covered Member ID Parrish Member ID Guarantor Name 05/03/2024 1 *SELF PAY* Delores Naranjo Notes Date Note Type Note Provider Name and Address Organization Details Recorded Time 05/03/2024 text/html Patient consente d to the use of [employer] to record and transcribe notes during this [...] reported during the visit. [address], [place], [address], [facility]. 05/03/2024 12:12:53 OBGyn Episode No OBEpisode recorded.
--- NOTE | 2024-06-21 20:44 | DI.VRAD_ITS ---
PROCEDURE INFORMATION: Exam: CT Abdomen And Pelvis With Contrast Exam date and time: 06/21/2024 7:07 PM Age: 43 years old Clinical indication: Pain; Other: Llq/luq tenderness TECHNIQUE: Imaging protocol: Computed tomography of the abdomen and pelvis with contrast. Contrast material: OMNIPAQUE 350; Contrast volume: 85 ml; Contrast route: INTRAVENOUS (IV); COMPARISON: No relevant prior studies available. FINDINGS: Lungs: The lung bases are clear of acute infiltrate. There is a 4 mm nodule along the lateral posterior right breast which may represent an intramammary lymph node. Heart: The heart is unremarkable. No coronary artery calcification. No pericardial effusion. Liver: The liver is overall enlarged. There is diffuse steatosis without focal lesion. Gallbladder and biliary ducts: No calcified gallstones or biliary dilatation. Pancreas: The pancreas shows no mass or inflammatory process. Spleen: The spleen is not enlarged. Adrenal glands: There is a low-density nodule of the right adrenal gland that measures 16 x 22. This has a Hounsfield density measurement of 29 on a contrast examination. Kidneys and ureters: The kidneys are unobstructed. There are no calculi. Stomach and bowel: There is no gastric outlet obstruction. There is no small bowel obstruction. There are scattered diverticula of the sigmoid colon but no diverticulitis. Appendix: No findings for appendicitis. Intraperitoneal space: No free air or free fluid. Vasculature: The abdominal aorta is of normal caliber. No aneurysm. No stenoses at the origins of the celiac or superior mesenteric artery. Lymph nodes: No abnormal para-aortic adenopathy. Urinary bladder: The bladder shows no filling defects. Reproductive: The uterine contour is unremarkable. There is a small amount of air within the vagina, this is nonspecific. Bones/joints: No acute bony changes of the lumbar spine or pelvis. Soft tissues: No abnormal soft tissue lesions of the abdominal wall. There is a small subumbilical hernia. IMPRESSION: 1. Diffuse hepatic steatosis without focal lesion. 2. Right adrenal nodule likely representing an adenoma. Non-emergent adrenal CT is recommended. (Reference: Hugo) References: Hugo BARNEY et al. Management of Incidental Adrenal Masses: A White Paper of the ACR Incidental Findings Committee. J Am Carla Radiol. 2017;14(8):1263-6276. 3. Scattered diverticula of the sigmoid colon without diverticulitis. 4. Small amount of air within the vagina, nonspecific but clinical correlation is still needed to rule out vaginitis. 5. No free air or free fluid. Dictated and Authenticated by: Jamie Reid MD. Ordering:ENDY Brooks MD
[2024-06-21 21:23] VITALS: BP 117/84; PULSE 84; RESP 16; TEMP 36.9; O2SAT 95
== END 2024-06-21 21:25 | disposition home or self-care (01) ==
PROVIDERS: Emergency Provider Physician Assistant; PCP Nurse Practitioner Family
DX: R10.84 Generalized abdominal pain (principal)
CPT/HCPCS: 80053; 83690; 96365; 96375; 99285; 74177; 81003; 81015; 83605; 83735; 85025; 99284; J0131; J1885; J3490